=== PATIENT | female | born 1955 | race Hispanic/Latino ===

== ENCOUNTER 2020-08-28 13:54 | Observation (INO) | payer OTHER ==
[~2020-08-28 13:54] MED LIST: Iopamidol-370 76% 500 ML 1 ML ONE
[2020-08-28] MEDS ORDERED: Aspirin Chewable 81 MG TAB ONE (14:24)
[2020-08-28] MEDS ORDERED: Nitroglycerin 2% Ointment 1 INCH/1 GM Packet ONE (14:24)
--- NOTE | 2020-08-28 14:38 | RAD ---
EXAM: CHEST ONE VIEW HISTORY: Chest pain. COMPARISON: None FINDINGS: Cardiac silhouette is magnified by projection but does appear mildly enlarged. The pulmonary vasculat ure is within normal limits. There are minimal scattered linear densities seen in the lungs bilaterally which may be related to mild chronic lung changes. There is minimal pleural thickening ve rsus pleural fluid in the region of the minor fissure. Slight blunting of the left lateral costophrenic angle is present which may represent minimal pleural and parenchymal scarring versus min imal pleural fluid. No consolidation is seen within the lungs bilaterally. Vascular calcifications are seen in the thoracic aorta. No acute osseous abnormality is seen. IMPRESSION: 1. Mild chronic lung changes with minimal pleural fluid versus pleural and parenchymal scarring in th e region of the left lateral costophrenic angle and minor fissure. 2. Mild cardiomegaly.
[2020-08-28 15:16] LABS: #Basophils 0.1 thou/uL (0.0-0.2); #Eosinphils 0.1 thou/uL (0.0-0.7); #Lymphocytes 1.7 thou/uL (1.20-3.40); #Monocytes 0.3 thou/uL (0.11-0.59); #Neutrophils 4.4 thou/uL (1.40-6.50); %Basophils 1.2 % (0.0-1.0); %Eosinophils 0.9 % (0.0-10.0); %Lymphocytes 25.4 % (21.0-51.0); %Neutrophils 67.6 % (42.0-75.0); Hemoglobin 13.5 g/dL (12.0-16.0); Mean Corpuscular HGB CONC 33.6 g/dL (32.0-36.0); Mean Corpuscular Hemoglobin 33.8 pg (27.0-31.0); Mean Platelet Volume 9.8 fL (7.4-10.4); Platelet Count 190 thou/uL (130-400); RBC Distribution Width 11.5 % (11.5-14.5); White Blood Cell (WBC) Count 6.6 thou/uL (4.8-10.8)
[2020-08-28 15:41] LABS: ALT (SGPT) 21 U/L (8-55); AST (SGOT) 25 U/L (5-34); Alkaline Phosphatase 54 U/L (40-110); Anion Gap 11 mmol/L (10-20); BUN (Urea Nitrogen) 18 mg/dL (9.8-20.1); Bilirubin, Total 0.6 mg/dL (0.2-1.2); CK (CPK) 81 U/L (29-168); Calc. Creatinine Clearance 0 mL/min (70-130); Calcium 9.2 mg/dL (7.8-10.44); Carbon Dioxide 23 mmol/L (23-31); Chloride 109 mmol/L (98-107); Estimated GFR-MDRD 60; Globulin 3.6 g/dL (2.4-3.5); Glucose 112 mg/dL (80-115); Potassium 3.6 mmol/L (3.5-5.1); Protein, Total 7.6 g/dL (6.0-8.3); Sodium 139 mmol/L (136-145)
[2020-08-28] MEDS ORDERED: Acetaminophen 500 MG TAB ONE (16:08)
[2020-08-28] MEDS ORDERED: Guaifenesin DM 100-10/5 ML UDCUP PO PRN (17:06)
[2020-08-28] MEDS ORDERED: Acetaminophen 325 MG TAB PO PRN (17:06)
[2020-08-28] MEDS ORDERED: Calcium Carbonate 500 MG ChewTAB PO PRN (17:06)
[2020-08-28] MEDS ORDERED: Ondansetron PF 4 MG/2 ML Vial IVP PRN (17:06)
[2020-08-28] MEDS ORDERED: Bisacodyl 10 MG SUPP PR PRN (17:06)
[2020-08-28] MEDS ORDERED: Lorazepam 1 MG TAB PO PRN (17:06)
[2020-08-28] MEDS ORDERED: Senokot S 8.6-50 MG TAB PO PRN (17:06)
[2020-08-28] MEDS ORDERED: Morphine 4 MG/ML VIAL ONE (17:10)
[2020-08-28] MEDS ORDERED: Ondansetron PF 4 MG/2 ML Vial ONE (17:10)
[2020-08-28] MEDS ORDERED: Morphine 2 MG/ML VIAL SLOW IVP PRN (17:16)
[2020-08-28 17:34] LABS: Pregnancy Test - Urine (BHCG) Negative (Negative); Pregu Control Background? CLEAR/WHITE (CLR/WHITE); Pregu Control Bar Appear? YES (CONTROL BAR); Specific Gravity 1.014 (1.002-1.036)
[2020-08-28 17:46] LABS: Amphetamine Not Detected (NotDetected); Barbiturates Screen Not Detected (NotDetected); Benzodiazepine Screen Not Detected (NotDetected); Cocaine Metabolite Screen Detected (NotDetected); Medtox Control Line Valid? VALID (VALID); Medtox Reader # READER 1; Methadone Not Detected (NotDetected); Methamphetamine Detected (NotDetected); Opiate Screen Not Detected (NotDetected); Oxycodone Screen Not Detected (NotDetected); Phencyclidine (PCP) Not Detected (NotDetected); THC/Cannabinoid Screen Not Detected (NotDetected); Tricyclic Screen Not Detected (NotDetected)
[2020-08-28 17:50] LABS: Acetaminophen Less than 6.0 mcg/mL (10.0-30.0); Alcohol Less than 10 mg/dL (Less than 10); Salicylate Less than 8.0 mg/dL (15.0-30.0)
--- NOTE | 2020-08-28 17:54 | HP ---
REASON FOR ADMISSION: Chest pain. HISTORY OF PRESENTING ILLNESS: The patient gives history of having left-sided chest pain radiating to the back and this was beneath her breast. This was pricking sensation. This was always present. She tried taking sublingual nitroglycerin. The pain did not go away with nitroglycerin. She tried 2 more times this morning. The patient says she does not have car insurance and no emt driver's license, and was driving and was arrested by police. She was taken into custody. The patient initially denied using cocaine or meth, but she later admitted to using it for 10 years or so in and has quit since then. She sees a primary care physician in [facility]. She does not recall his name; the last time she visited him was 3 months back. The patient also mentions that she has had angiogram done in 2006 in [place], [place] and was advised to get CABG and was transferred to [facility], but the patient got scared to get the surgery done, and since then has not had any followups for that. PAST MEDICAL AND SURGICAL HISTORY: History of 2 prior WA in 1981 and 1989. She was advised CABG in 2006, but the patient was scared and has not had it done. Has not had any further followups. Hypertension, schizophrenia, bipolar disorder, cholecystectomy, prior history of small bowel obstruction, chronic hep C for more than 30 years now. CURRENT MEDICATIONS: Please note the patient does not recall any of her medication nor does she know the name of her pharmacy. She apparently picks them up in [place]. She knows she takes aspirin and an unknown blood thinner amitriptyline, but does not recall any other medications at present. ALLERGIES: NO KNOWN DRUG ALLERGIES. PERSONAL HISTORY: Has used cocaine in the past in the for 10 years or so and has quit. She admits to using marijuana in the past and quit in 1981. Denies drinking alcohol or smoking. She has 7 children and is not in touch with any of them. She is . She is on disability due to mental illness. FAMILY HISTORY: Both parents had cardiac history. Father at the age of 54. Mother at the age of 48. She is the only child. CODE STATUS: The patient does not want to be resuscitated. She has not designated anybody as POA. She was currently living with a friend of hers before being taken into custody. REVIEW OF SYSTEMS: CONSTITUTIONAL: Negative for weight loss or gain, ability to conduct usual activities. SKIN: Negative for rash, itching. EYES: Negative for double vision, pain. ENT/MOUTH: Negative for nose bleeding, neck stiffness, pain, tenderness. CARDIOVASCULAR: Negative for palpitations, dyspnea on exertion, orthopnea. RESPIRATORY: Negative for shortness of breath, wheezing, cough, hemoptysis, fever or night sweats. GASTROINTESTINAL: Negative for poor appetite, abdominal pain, heartburn, nausea, vomiting, constipation, or diarrhea. GENITOURINARY: Negative for urgency, frequency, dysuria, nocturia. MUSCULOSKELETAL: Negative for pain, swelling. NEUROLOGIC/PSYCHIATRIC: Negative for anxiety, depression. ALLERGY/IMMUNOLOGIC: Negative for skin rash, bleeding tendency. PHYSICAL EXAMINATION: GENERAL: The patient is a 65-year-old female who is currently not in any acute distress. VITAL SIGNS: Blood pressure 198/126 on arrival, pulse 90 per minute, respiratory rate 18 per minute. The patient has not had a temperature checked and will obtain the same. Saturating 98% on room air. NECK: Supple. No elevated JVD. HEENT: Eyes; extraocular muscles intact. Pupils reacting to light. Oral cavity; mucous membranes are moist. No exudates or congestion. CARDIOVASCULAR SYSTEM: S1 and S2 heard. Regular rhythm. RESPIRATORY SYSTEM: Air entry 1+ bilateral. Scattered rhonchi. No rales or wheezes. ABDOMEN: Soft. Bowel sounds heard. No tenderness, rigidity, or guarding. EXTREMITIES: No peripheral edema or calf tenderness. VASCULAR SYSTEM: Peripheral pulses 1+ bilateral. No ischemic ulcerations or gangrene. CENTRAL NERVOUS SYSTEM: No gross focal motor deficits noted. The patient is alert, awake, and responds to verbal questions. PSYCHIATRIC: Cannot be accurately assessed. There are no obvious hallucinations or delusions at present. LABORATORY DATA: Chest x-ray done shows chronic lung changes with scarring in the region of left lateral costophrenic angle, minor fissure, and mild cardiomegaly. EKG done shows normal sinus rhythm at 81 beats per minute. There is LBBB seen. QRS duration is 124 milliseconds. There is LVH strain pattern seen. Troponin I 0.03. CK-MB is 4.0. Albumin 4.0. BUN 18, creatinine 0.9, glucose 112. Liver enzymes within normal limits. Electrolytes stable. White count of 6, H and H 13 and 40, platelet count is 190, MCV is 101 with 67% neutrophils. CLINICAL IMPRESSION AND PLAN: The patient will be under observation on telemetry. We will obtain a urine drug screen as well. A CT aortic dissection protocol has been ordered in the ER and we will follow up on the results. We will follow ACS evidence based protocol. We will have 2 more sets of troponin and trend it and a nuclear stress test in the morning. She has underlying LBBB. The patient apparently was told that she will need CABG in 2006 in [facility]. She has uncontrolled hypertension and we will await drug screen results. We will hold off on beta-blockers for now until drug screen results are back. She will be on aspirin, lisinopril 10 mg twice daily, nitroglycerin topical q.8 hourly, and hydralazine 25 mg 3 times daily for now. The patient wants her amitriptyline and she thinks it is 50 mg and we will give it at bedtime. We will closely monitor her on telemetry. Job ID: [id number]
--- NOTE | 2020-08-28 17:55 | CT ---
CTA OF THE CHEST AND ABDOMEN UTILIZING AN AORTIC DISSECTION PROTOCOL AND 3-D REFORMATTED IMAGING INDICATION: Sharp chest pain and hypertension COMPARISON: None FINDINGS: Aorta: No acute aortic stenosis, occlusion or aneurysmal formation demonstrated. There is some appare nt arterial anatomy in the upper abdomen. 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 There is some eccentric ather osclerotic plaque near its origin and that induces mild narrowing of the artery. There is mild narrowing of the KELSEY origin. The SMA, celiac and primary renal arteries bilaterally appear patent. Central pulmonary artery: Not well opacified. No definite central pulmonary embolus is evident. Additional thorax findings: There are coronary artery and thoracic aortic calcifications. There is molina bsegmental volume loss within both lower lobes. No confluent airspace opacity or pneumothorax is demonstrated. There is a tiny left pleural effusion which is nonspecific. Additional abdominal findings: The gallbladder is not identified and presumed to be surgically absent . There is mild intrahepatic and extra hepatic biliary ductal dilatation which is likely related to postcholecystectomy state. There is a horseshoe kidney. There is a small cyst involving the superior pole of the left moiety. The pancreas, adrenal glands and spleen appear within normal limits. No free fluid or enlarged lymph nodes are evident. The unopacified large and small bowel reveal no defin ite acute abnormality. Osseous structures: No acute osseous abnormality. There is scattered degenerative and osteoarthritic change present. IMPRESSION: 1. No appreciable aortic stenosis, occlusion or aneurysmal formation demonstrated. 2. Mild narrowing involving the origin of an aberrant artery feeding a right duplicated renal arteria l branch and pancreaticoduodenal arterial branch. 3. Mild narrowing involving the KELSEY origin. 4. Nonspecific small left pleural effusion.
[2020-08-28 18:33] LABS: Troponin I 0.029 ng/mL (< 0.028)
[2020-08-28 19:31] VITALS: BMI 19.9
[2020-08-28] MEDS ORDERED: Amitriptyline HCl 25 MG TAB PO SCH (21:00)
[2020-08-28] MEDS: Lisinopril 10 MG TAB PO SCH (21:12)
[2020-08-28] MEDS: hydrALAZINE 25 MG TAB PO SCH (21:12)
[2020-08-28] MEDS: Famotidine 20 MG TAB PO SCH (21:12)
[2020-08-28] MEDS: Nitroglycerin 2% Ointment 1 INCH/1 GM Packet TOP SCH (21:13)
[2020-08-28 22:07] LABS: Troponin I 0.035 ng/mL (< 0.028)
[2020-08-29] MEDS: Nitroglycerin 2% Ointment 1 INCH/1 GM Packet TOP SCH (04:39)
[2020-08-29 06:47] LABS: #Eosinphils 0.1 thou/uL (0.0-0.7); #Lymphocytes 0.9 thou/uL (1.20-3.40); #Monocytes 0.2 thou/uL (0.11-0.59); #Neutrophils 1.8 thou/uL (1.40-6.50); %Basophils 1.4 % (0.0-1.0); %Eosinophils 4.7 % (0.0-10.0); %Lymphocytes 29.8 % (21.0-51.0); %Monocytes 6.6 % (0.0-10.0); %Neutrophils 57.6 % (42.0-75.0); Hemoglobin 12.2 g/dL (12.0-16.0); Mean Corpuscular HGB CONC 33.6 g/dL (32.0-36.0); Mean Corpuscular Hemoglobin 34.1 pg (27.0-31.0); Mean Platelet Volume 9.5 fL (7.4-10.4); Platelet Count 169 thou/uL (130-400); RBC Distribution Width 11.5 % (11.5-14.5); Red Blood Cell (RBC) Count 3.58 mill/uL (4.20-5.40); White Blood Cell (WBC) Count 3.1 thou/uL (4.8-10.8)
[2020-08-29 07:16] LABS: Anion Gap 9 mmol/L (10-20); BUN (Urea Nitrogen) 21 mg/dL (9.8-20.1); Calc. Creatinine Clearance 40 mL/min (70-130); Calcium 8.5 mg/dL (7.8-10.44); Carbon Dioxide 24 mmol/L (23-31); Cardiac Risk 2.3 (Less than 4.5); Chloride 106 mmol/L (98-107); Cholesterol 161 mg/dl (< 200 Desired); Estimated GFR-MDRD 61; Glucose 88 mg/dL (80-115); HDL Cholesterol 71 mg/dL (>60 Neg Risk); LDL Cholesterol, Calculated 75 mg/dL; Potassium 3.4 mmol/L (3.5-5.1); Sodium 136 mmol/L (136-145); Triglycerides 76 mg/dL (Less than 150)
[2020-08-29 08:00] VITALS: BP 134/79; TEMP 98.5
[2020-08-29] MEDS: hydrALAZINE 25 MG TAB PO SCH (08:01)
[2020-08-29] MEDS: Famotidine 20 MG TAB PO SCH (08:01)
[2020-08-29] MEDS ORDERED: Aspirin 325 mg Enteric Coated Tablet PO SCH (09:00)
[2020-08-29] MEDS ORDERED: Enoxaparin Sodium 30 MG/0.3 ML SYRINGE SC SCH (09:00)
[2020-08-29] MEDS: Lisinopril 10 MG TAB PO SCH (10:13)
[2020-08-29 11:42] LABS: SARS-CoV-2 MS2 Positive; SARS-CoV-2 N Gene Negative; SARS-CoV-2 S Gene Negative; SARS-CoV-2 by NAA Not Detected (NotDetected); SARS-CoV-2 orf1ab Negative
--- NOTE | 2020-08-29 17:08 | DIS ---
DATE OF ADMISSION: 08/28/2020 DATE OF DISCHARGE: 08/29/2020 DISCHARGE DISPOSITION: [facility]. PRIMARY DISCHARGE DIAGNOSIS: Chest pain secondary to cocaine and methamphetamine use, substance abuse. SECONDARY DISCHARGE DIAGNOSES: History of coronary artery disease in the past, hypertension, schizoaffective disorder, bipolar disorder. PROCEDURES DONE DURING HOSPITALIZATION: Chest x-ray done showed mild cardiomegaly with chronic pulmonary changes. CT aortic dissection protocol done showed no aortic stenosis, occlusion, or aneurysm formation seen. Mild narrowing involving the origin of aberrant artery feeding a right duplicated renal arterial branch and pancreaticoduodenal arterial branch. Mild narrowing involving KELSEY origin. Urine drug screen was positive for methamphetamine and cocaine metabolites, plasma alcohol less than 10. COVID-19 PCR was not detected on 08/28/2020. Troponin I was 0.039. BNP 1432, total cholesterol 161, triglycerides 76, LDL 75, HDL 71, H and H 12 and 36 platelet count 169, MCV is 102. DISCHARGE MEDICATION: 1. Amitriptyline 50 mg p.o. at bedtime. 2. Hydralazine 25 mg 3 times daily. 3. Aspirin 81 mg p.o. daily. 4. Lisinopril 10 mg twice daily. 5. Pepcid 20 mg twice daily. ALLERGIES: NO KNOWN DRUG ALLERGIES. PLEASE NOTE, NO BETA PALMA WAS GIVEN IN VIEW OF THE PATIENT'S URINE DRUG SCREEN BEING POSITIVE FOR COCAINE AND METHAMPHETAMINE. DISCHARGE PLAN: The patient to follow up with her primary care physician in [place] in 1 week. BRIEF COURSE DURING HOSPITALIZATION: The patient initially was brought to emergency room with complaints of left-sided chest pain beneath her breast. She was brought from [facility]. The patient although denied she used drugs, but in fact was arrested by police for possession of drugs. Her urine drug screen was also positive for cocaine and methamphetamine. She was placed on telemetry and has had close monitoring done. Her hypertension was well controlled on current medication. She was not taking any medications. The patient is noncompliant with her schizoaffective disorder medication as well. She has not had any regular followups with her primary care physician in [place]. Once the patient remains off street drugs, she will need a complete cardiology evaluation including echo and likely a nuclear stress test via primary care physician. In view of drug screen being positive for vasoconstricting agents, stress test was not done. She is chest pain free and hemodynamically stable prior to discharge. Please note I have seen and examined the patient on the day of discharge. Job ID: [id number]
== END 2020-08-29 15:00 ==
LOC: EDBD 13:54 → EEVIPCON 13:54 → ERS 13:54 → 2SW 16:47
PROVIDERS: ADMIT Internal Medicine; ATTEND Internal Medicine
DX: F14.188 Cocaine abuse with other cocaine-induced disorder (principal); F15.188 Other stimulant abuse with other stimulant-induced disorder; R07.89 Other chest pain; I25.10 Atherosclerotic heart disease of native coronary artery without angina pectoris; I10 Essential (primary) hypertension; F25.9 Schizoaffective disorder, unspecified; F31.9 Bipolar disorder, unspecified; F41.9 Anxiety disorder, unspecified; I25.2 Old myocardial infarction; B18.2 Chronic viral hepatitis C; I44.7 Left bundle-branch block, unspecified; J90 Pleural effusion, not elsewhere classified; Z66 Do not resuscitate; Z91.14 Patient's other noncompliance with medication regimen; Z79.82 Long term (current) use of aspirin; Z79.899 Other long term (current) drug therapy; Z20.828 Contact with and (suspected) exposure to other viral communicable diseases; Z95.1 Presence of aortocoronary bypass graft
CPT/HCPCS: 36415; 71045; 71275; 74174; 80048; 80053; 80061; 80306; 80307; 81025; 82550; 82553; 83880; 84484; 85025; 87635; 93005; 94760; 96372; 96374; 96375; 96376; G0378; J1650; J2270; J2405; Q9967; U0003

== ENCOUNTER 2020-12-08 06:42 | Inpatient (IN) | payer MEDICARE, SELFPAY ==
[2020-12-08] MEDS ORDERED: Aspirin Chewable 81 MG TAB ONE (07:47)
[2020-12-08] MEDS ORDERED: Nitroglycerin 0.4 MG TAB 1 EACH ONE (07:47)
[2020-12-08 07:54] LABS: #Basophils 0.1 thou/uL (0.0-0.2); #Eosinphils 0.1 thou/uL (0.0-0.7); #Lymphocytes 2.1 thou/uL (1.20-3.40); #Monocytes 0.3 thou/uL (0.11-0.59); #Neutrophils 2.2 thou/uL (1.40-6.50); %Eosinophils 2.3 % (0.0-10.0); %Lymphocytes 43.3 % (21.0-51.0); %Monocytes 5.6 % (0.0-10.0); %Neutrophils 46.9 % (42.0-75.0); Hemoglobin 13.1 g/dL (12.0-16.0); Mean Corpuscular HGB CONC 31.7 g/dL (32.0-36.0); Mean Corpuscular Hemoglobin 32.2 pg (27.0-31.0); Mean Platelet Volume 8.9 fL (7.4-10.4); Platelet Count 199 thou/uL (130-400); RBC Distribution Width 13.1 % (11.5-14.5); Red Blood Cell (RBC) Count 4.05 mill/uL (4.20-5.40); White Blood Cell (WBC) Count 4.8 thou/uL (4.8-10.8)
--- NOTE | 2020-12-08 08:18 | RAD ---
Chest AP view INDICATION: Chest pain COMPARISON: Prior exam dated September 13, 2020 FINDINGS: Lungs: There is subsegmental volume loss versus scarring involving the right midlung. There is COPD change. Cardiac silhouette: There is moderate cardiomegaly Pulmonary vasculature: There is mild pulmonary vascular congestion. Pleural spaces: There are small bilateral pleural effusions, right greater than left. No pneumothora x is evident. Upper abdomen: No abnormality seen. Osseous structures: No acute osseous abnormality. Additional findings: None. IMPRESSION: Findings suspicious for mild CHF
[2020-12-08 08:22] LABS: ALT (SGPT) 22 U/L (8-55); AST (SGOT) 33 U/L (5-34); Albumin 3.9 g/dL (3.4-4.8); Alkaline Phosphatase 60 U/L (40-110); Anion Gap 19 mmol/L (10-20); BUN (Urea Nitrogen) 45 mg/dL (9.8-20.1); Bilirubin, Total 0.5 mg/dL (0.2-1.2); CK (CPK) 109 U/L (29-168); Calc. Creatinine Clearance 0 mL/min (70-130); Calcium 9.1 mg/dL (7.8-10.44); Carbon Dioxide 25 mmol/L (23-31); Chloride 101 mmol/L (98-107); Globulin 4.1 g/dL (2.4-3.5); Glucose 130 mg/dL (80-115); Lipase 22 U/L (8-78); Potassium 3.8 mmol/L (3.5-5.1); Sodium 141 mmol/L (136-145)
[2020-12-08 08:31] LABS: CKMB 4.4 ng/mL (0-6.6)
[2020-12-08 08:35] LABS: Bacteria/HPF None Seen HPF (None Seen); Bilirubin Negative (Negative); Blood, Urine Negative (Negative); Clarity Clear (Clear); Glucose, Urine (Dipstick) Normal (Negative); Ketone, Urine Negative (Negative); Leukocyte Negative Leu/uL (Negative); Nitrite Negative (Negative); Protein, Urine (Dipstick) 200 mg/dL (Neg-Trace); RBC/HPF 0-3 HPF (0-3); Specific Gravity, Urine 1.031 (1.002-1.036); Squamous Epithelial None Seen HPF (0-3); Urobilinogen 3 mg/dL (Less than 2); WBC/HPF 0-3 HPF (0-3)
[2020-12-08] MEDS ORDERED: Furosemide 20 MG/2 ML VIAL ONE (08:49)
[2020-12-08] MEDS ORDERED: Ondansetron PF 4 MG/2 ML Vial ONE (08:49)
[2020-12-08] MEDS ORDERED: Morphine 4 MG/ML VIAL ONE (08:49)
[2020-12-08] MEDS ORDERED: Nitroglycerin 2% Ointment 1 INCH/1 GM Packet TOP PRN (10:35)
[2020-12-08 10:36] LABS: SARS-CoV-2 NAA Rapid Test Not Detected (NotDetected)
--- NOTE | 2020-12-08 10:43 | PDOC.HHP ---
Hospitalist HPI Shortness of breath History of Present Illness: Ms. Horner is a 65-year-old female with a past medical history of coronary artery disease, hypertension, anxiety, bipolar disorder, schizophrenia, hepatitis C, remote IV drug use, hyperlipidemia who presents with worsening dyspnea on exertion. Patient reports that over the past few days she has had worsening shortness of breath when ambulating. Patient finds it she needs to sit up at night due to her breathing. She is also noticed some increased swelling in her lower extremities. Patient reports that she does take several medications but is unaware of the name. She does take a water pill which she reports she took some extra doses of yesterday. She does not have a elevator starter or primary care provider. She does report that she was told a few years ago that she needed open heart surgery, however she never followed up because she was "too scared about having an operation". She denies cough, upper respiratory symptoms. No known Covid contacts. In emergency room initial vital signs 173/129, 99, 20, 97.4, 94% on room air. EKG showed normal sinus rhythm with a left bundle branch block. Recent ER admission approximately 1 month ago sewed stable left bundle branch block. No ST segment changes. Initial troponin 0 0.103, BNP 3952, WBC 4.8, H/H 13.1/41.2, platelets 199. BUN/CR 45/1.76, sodium 141, potassium 3.8, glucose 130. Patient received aspirin, Lasix, morphine, Zofran, Nitropaste in the emergency room. Allergies/Adverse Reactions: Allergy/AdvReac Type Severity Reaction Status Date / Time No Known Allergies Allergy Verified 08/28/20 20:05 Home Medications: Medication Instructions Recorded Confirmed Type "Blood Thinner" 1 tab PO DAILY 08/28/20 08/28/20 History Amitriptyline HCl [Elavil] 50 mg PO HS 08/28/20 08/28/20 History Bipolar Med 1 tab PO DAILY 08/28/20 08/28/20 History Bipolar Medication 1 tab PO HS 08/28/20 08/28/20 History Aspirin Chewable [Aspirin Chewable 81 mg PO DAILY #30 tab 08/29/20 Rx Tablet] Famotidine [Pepcid] 20 mg PO BID #60 tab 08/29/20 Rx Lisinopril [Zestril] 10 mg PO BID #60 tab 08/29/20 Rx hydrALAZINE [Apresoline] 25 mg PO TID #90 tab 08/29/20 Rx Past History: PMHx: PSHx: FHx: Social: Hospitalist HPI ROS Constitutional: denies: fever, chills, sweats, weakness, malaise, other Eyes: denies: pain, vision change, conjunctivae inflammation, eyelid inflammation, redness, other ENT: denies: ear pain, ear discharge, nose pain, nose discharge, nose congestion, mouth pain, mouth swelling, throat pain, throat swelling, other Respiratory: reports: shortness of breath, SOB with excertion. denies: cough, dry, hemoptysis, pleuritic pain, sputum, wheezing, other Cardiovascular: reports: chest pain, orthopnea, paroxysmal noc. dyspnea. denies: palpitations, edema, light headedness, other Gastrointestinal: denies: nausea, vomiting, abdominal pain, diarrhea, constipation, melena, hematochezia, other Genitourinary: denies: dysuria, frequency, incontinence, hematuria, retention, other Musculoskeletal: denies: neck pain, shoulder pain, arm pain, back pain, hand pain, leg pain, foot pain, other Skin: denies: rash, lesions, carlyle, bruising, other Neurological: denies: weakness, numbness, incoordination, change in speech, confusion, seizures, other Hospitalist Exam General Appearance: NAD, awake alert General - other findings: Disheveled in appearance Eye: PERRL, anicteric sclera ENT: normocephalic atraumatic, no oropharyngeal lesions, moist mucosa Neck: supple, symmetric, no thyromegaly, no lymphadenopathy, no carotid bruit, JVD Neck - other findings: JVD with positive hepatojugular reflux Heart: RRR, no rubs, normal peripheral pulses Heart - other findings: S3 gallop Respiratory: no ronchi, normal chest expansion, no tachypnea Respiratory - other findings: Crackles at bilateral bases Gastrointestinal: soft, non-tender, non-distended, normal bowel sounds, no palpable masses, no hepatomegaly, no splenomegaly, no bruit Extremities: no cyanosis, no clubbing, 1+ LE edema Skin: normal turgor, no lesions, no rashes Neurological: cranial nerve grossly intact, normal sensation to touch, no weakness, no focal deficits, no new deficit Musculoskeletal: normal tone, normal strength, no muscle wasting Psychiatric: normal affect, normal behavior, A&O x 3 Hospitalist Results Result Diagrams: 12/08/20 07:38 12/08/20 07:38 Lab results: Laboratory Last Values WBC 4.8 thou/uL (4.8-10.8) 12/08/20 07:38 RBC 4.05 mill/uL (4.20-5.40) L 12/08/20 07:38 Hgb 13.1 g/dL (12.0-16.0) 12/08/20 07:38 Hct 41.2 % (36.0-47.0) 12/08/20 07:38 MCV 102.0 fL (78.0-98.0) H 12/08/20 07:38 MCH 32.2 pg (27.0-31.0) H 12/08/20 07:38 MCHC 31.7 g/dL (32.0-36.0) L 12/08/20 07:38 RDW 13.1 % (11.5-14.5) 12/08/20 07:38 Plt Count 199 thou/uL (130-400) 12/08/20 07:38 MPV 8.9 fL (7.4-10.4) 12/08/20 07:38 Neutrophils % 46.9 % (42.0-75.0) 12/08/20 07:38 Neutrophils % (Manual) Not Reportable 12/08/20 07:38 Lymphocytes % 43.3 % (21.0-51.0) 12/08/20 07:38 Monocytes % 5.6 % (0.0-10.0) 12/08/20 07:38 Eosinophils % 2.3 % (0.0-10.0) 12/08/20 07:38 Basophils % 2.0 % (0.0-1.0) H 12/08/20 07:38 Neutrophils # 2.2 thou/uL (1.40-6.50) 12/08/20 07:38 Lymphocytes # 2.1 thou/uL (1.20-3.40) 12/08/20 07:38 Monocytes # 0.3 thou/uL (0.11-0.59) 12/08/20 07:38 Eosinophils # 0.1 thou/uL (0.0-0.7) 12/08/20 07:38 Basophils # 0.1 thou/uL (0.0-0.2) 12/08/20 07:38 Sodium 141 mmol/L (136-145) 12/08/20 07:38 Potassium 3.8 mmol/L (3.5-5.1) 12/08/20 07:38 Chloride 101 mmol/L (98-107) 12/08/20 07:38 Carbon Dioxide 25 mmol/L (23-31) 12/08/20 07:38 Anion Gap 19 mmol/L (10-20) 12/08/20 07:38 BUN 45 mg/dL (9.8-20.1) H 12/08/20 07:38 Creatinine 1.76 mg/dL (0.6-1.1) H 12/08/20 07:38 Estimated GFR (MDRD) 12/08/20 07:38 Glucose 130 mg/dL (80-115) H 12/08/20 07:38 Calcium 9.1 mg/dL (7.8-10.44) 12/08/20 07:38 Total Bilirubin 0.5 mg/dL (0.2-1.2) 12/08/20 07:38 AST 33 U/L (5-34) 12/08/20 07:38 ALT 22 U/L (8-55) 12/08/20 07:38 Alkaline Phosphatase 60 U/L (40-110) 12/08/20 07:38 Creatine Kinase 109 U/L (29-168) 12/08/20 07:38 CK-MB (CK-2) 4.4 ng/mL (0-6.6) 12/08/20 07:38 Troponin I 0.103 ng/mL (< 0.028) H 12/08/20 07:38 B-Natriuretic Peptide 3952.7 pg/mL (0-100) H 12/08/20 07:38 Serum Total Protein 8.0 g/dL (5.8-8.1) 12/08/20 07:38 Albumin 3.9 g/dL (3.4-4.8) 12/08/20 07:38 Globulin 4.1 g/dL (2.4-3.5) H 12/08/20 07:38 Albumin/Globulin Ratio 1.0 g/dL (1.2-2.2) L 12/08/20 07:38 Lipase 22 U/L (8-78) 12/08/20 07:38 Urine Color Yellow (Yellow) 12/08/20 07:56 Urine Clarity Clear (Clear) 12/08/20 07:56 Urine pH 6.0 (5.0-9.0) 12/08/20 07:56 Ur Specific [place] 1.031 (1.002-1.036) 12/08/20 07:56 Urine Protein 200 mg/dL (Neg-Trace) A 12/08/20 07:56 Urine Glucose (UA) Normal mg/dL (Negative) 12/08/20 07:56 Urine Ketones Negative mg/dL (Negative) 12/08/20 07:56 Urine Blood Negative (Negative) 12/08/20 07:56 Urine Nitrite Negative (Negative) 12/08/20 07:56 Urine Bilirubin Negative (Negative) 12/08/20 07:56 Urine Urobilinogen 3 mg/dL (Less than 2) A 12/08/20 07:56 Ur Leukocyte Esterase Negative Elizabeth/uL (Negative) 12/08/20 07:56 Urine RBC 0-3 HPF (0-3) 12/08/20 07:56 Urine WBC 0-3 HPF (0-3) 12/08/20 07:56 Ur Squamous Epith Cells None Seen HPF (0-3) 12/08/20 07:56 Urine Bacteria None Seen HPF (None Seen) 12/08/20 07:56 Hyaline Casts 4-6 LPF (0-3) A 12/08/20 07:56 Influenza A RNA INAAT Not Detected (NotDetected) 12/08/20 07:38 Influenza B RNA INAAT Not Detected (NotDetected) 12/08/20 07:38 SARS-CoV-2 Rap RNA(RT-PCR) Not Detected (NotDetected) 12/08/20 07:38 Hospitalist H&P A/P Plan: 65-year-old female with past medical history of hypertension, coronary artery disease, hepatitis C, schizophrenia/bipolar disorder presents with worsening dyspnea on exertion and chest pain found to be in acute CHF exacerbation. Acute exacerbation of congestive heart failure Patient reports she does not have a PCP or elevator starter. She has seen a elevator starter years ago who told her she needed open heart surgery, but she never followed up because she was nervous about getting an operation. Patient does report that she takes medication for her blood pressure and a water pill. She is unable to tell me the names of any of the medications. On exam patient with elevated JVD, positive hepatojugular reflex, S3 gallop, 1+ peripheral edema and crackles. BNP significantly elevated 3952, troponin 0 0.103. Chest x-ray with small bilateral pleural effusions and pulmonary vascular congestion. BUNs/CR 45/1.76. WBC 4.8. Patient received 60 mg of IV Lasix in emergency room. She is currently saturating at 94% on room air. Will admit for new onset CHF work- up and consult cardiology for further recommendations. Patient's blood pressure is stable in fact she is hypertensive. Patient is mildly tachycardic as well. Plan IV Lasix 40 mg twice daily, titrate to urine output of 2 to 3 L Supplemental oxygen as needed Start Coreg Cardiology consult NSTEMI Patient with chest pain and elevated troponin to 0.103. Unable to tell if type I versus type II NSTEMI at this time. May be elevated secondary to acute CHF exacerbation also in the setting of an DACIA. Patient however does have a significant coronary artery disease history stating that years ago she was told she needed open heart surgery. EKG shows no ischemic changes but does show a left bundle branch block, which is stable from prior EKG taken in October. On prior admission patient was positive for cocaine and methamphetamine use causing her chest pain at that time. She did not undergo a stress test since she still had these agents in her system. Patient denies current use, but will urine drug screen. Will trend troponin, keep on telemetry monitoring and consult cardiology for further recommendations. Plan Aspirin, Nitropaste as needed Trend troponin Telemetry monitoring Cardiology consult Acute kidney failure Patient with acute kidney failure BUN/CR 45/1.76. Review of records shows baseline creatinine less than 1. Likely component of cardiorenal syndrome. I do not think this is prerenal azotemia at this time as patient appears fluid overloaded on exam. We will continue to diurese patient and monitor kidney function closely. Will avoid nephrotoxic agents were possible. Plan IV diuresis as above Trend kidney function Avoid nephrotoxic agents were possible Renal dosing as appropriate Hypertension Patient hypertensive in emergency room to 173/124. Improved with Nitropaste. Patient on multiple home medications, but she is unsure which ones. Will hold off on starting TERRY inhibitor now given patient's kidney function, although patient will likely need this started prior to discharge. Will start low-dose beta-yamilex and treat with as needed hydralazine for now. Plan Confirm home medications Consider starting TERRY inhibitor prior to discharge Start low-dose Coreg As needed hydralazine Hyperlipidemia We will start patient on atorvastatin. Patient does report she takes medication for cholesterol but cannot remember the name. Coronary artery disease History of coronary artery disease. Patient has not seen a elevator starter in years, but does report that years ago she was told she needed open heart surgery, and was lost to follow-up. Aspirin Treatment as above per NSTEMI Bipolar disorder and schizophrenia History of bipolar disorder and schizophrenia. Patient says she does take psychiatric medications although does not know the names of them. History of cocaine and methamphetamine abuse Patient with history of cocaine and methamphetamine abuse on prior admission. Patient currently denies any current use. As these could be contributing to patient's chest pain will appropriate urine drug screen. DVT prophylaxis SQ heparin Full code Case discussed with attending physician, Dr. Madera.
[2020-12-08 11:10] LABS: Troponin I 0.086 ng/mL (< 0.028)
[2020-12-08] MEDS ORDERED: hydrALAZINE 20 MG/ML VIAL SLOW IVP PRN (11:10)
[2020-12-08 11:25] LABS: HIV (1/2) Antibody/Antigen Non-Reactive (NonReactive); Thyroid Stimulating Hormone 1.7618 uIU/mL (0.35-4.94)
[2020-12-08 12:02] VITALS: BMI 21.4
[2020-12-08] MEDS ORDERED: Magnesium 2 GM/50 ML 2 GM in Premix Bag 1 BAG IVPB SCH (13:15)
[2020-12-08 13:49] LABS: Amphetamine Not Detected (NotDetected); Barbiturates Screen Not Detected (NotDetected); Benzodiazepine Screen Not Detected (NotDetected); Cocaine Metabolite Screen Detected (NotDetected); Medtox Control Line Valid? VALID (VALID); Medtox Reader # READER 1; Methadone Not Detected (NotDetected); Methamphetamine Not Detected (NotDetected); Opiate Screen Detected (NotDetected); Oxycodone Screen Not Detected (NotDetected); Phencyclidine (PCP) Not Detected (NotDetected); THC/Cannabinoid Screen Not Detected (NotDetected); Tricyclic Screen Not Detected (NotDetected)
[2020-12-08 13:58] LABS: Troponin I 0.107 ng/mL (< 0.028)
[2020-12-08] MEDS: Furosemide 40 MG/4 ML VIAL SLOW IVP SCH (13:58)
[2020-12-08] MEDS: Heparin 5,000 UNITS/ML VIAL SC SCH ×2 (14:04→21:13)
--- NOTE | 2020-12-08 16:01 | CON ---
DATE OF CONSULTATION: 12/08/2020 REASON FOR CONSULTATION: Shortness of breath. HISTORY OF PRESENT ILLNESS: Ms. Horner is a 65-year-old female, who comes to the hospital for shortness of breath. She has significant cardiac history, apparently in [place], [place]. In several years ago around 2006, she had a procedure that sounds to be a heart catheterization and she was advised that she needed bypass surgery and she was transferred to the [facility]. She does not really recall this as well as she is unable to give me much detail. This is mostly from a note from August when she was here in the hospital. She was here at that time for chest pain and she was ruled out and sent home. Today, she comes in as she has noticed shortness of breath for the last 3 days. She states it started 3 days ago and it just kept getting worse and worse and worse. Decided to come in as she could not breathe. She has no known COVID contacts and she has never followed as she is very scared about any type of surgeries. On my evaluation, Ms. Horner states that she just wants to feel better and she would like to do whatever we tell her to do as long as she can feel better. When I mentioned the possible procedure like a heart catheterization or even surgery, she immediately tells me that she would probably have to think about it then. On my evaluation, Ms. Horner is not complaining of any chest pain, tightness, or pressure and her shortness of breath is slowly getting better. PAST MEDICAL HISTORY: 1. Coronary artery disease as above. This is unclear. 2. Hypertension. 3. Anxiety. 4. Bipolar disorder. 5. Schizophrenia. 6. Hepatitis C. 7. 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 SURGICAL HISTORY: 1. Cholecystectomy. 2. History of small bowel obstruction. 3. Chronic hep C. OUTPATIENT MEDICATIONS: 1. Aldactone 25 mg a day. 2. Entresto 24/26 b.i.d. 3. Carvedilol 3.125 b.i.d. 4. Furosemide 20 mg a day. 5. Aspirin 81 a day. ALLERGIES: NO KNOWN DRUG ALLERGIES. SOCIAL HISTORY: Former drug user, cocaine, but apparently has not done in several years now. This was in the , used for about 10 years. Denies alcohol or tobacco use. Apparently, she has 7 kids, but is not in touch with any of them. On disability due to mental illness as above. FAMILY HISTORY: Both parents with cardiac history. Father at 54. Mother at 88, unclear as to what history this. REVIEW OF SYSTEMS: A 12-point review of systems was done and was found to be negative other than stated in the history of present illness. PHYSICAL EXAMINATION: VITAL SIGNS: Temperature 97.8, pulse 104, respiratory rate 20, saturating 96% on room air, blood pressure 183/118. GENERAL: Awake, alert, oriented x3. No distress. HEENT: Normocephalic, atraumatic. NECK: Supple. LUNGS: Have mild crackles at bases. CARDIOVASCULAR: S1 and S2. There is a grade 3/6 systolic murmur at the right upper sternal border. ABDOMEN: Soft. Positive bowel sounds. EXTREMITIES: 1+ edema. SKIN: Warm and dry. LABORATORY DATA: Laboratory work was reviewed. White count of 4, hemoglobin of 13, hematocrit of 41, platelet count of 199. Chemistry with a BUN of 45, creatinine 1.76, GFR of 29. Troponin of 0.10, then 0.08, then 0.08 and BNP of 3952. Albumin of 3.9. UA was reviewed. She was positive for both opiates and cocaine. COVID-19 PCR was not detected. Influenza A and B were negative. HIV was negative as well. ASSESSMENT: 1. Acute on chronic systolic versus diastolic heart failure. 2. Apparent history of coronary artery disease. 3. Substance abuse, positive cocaine and urine drug screen. PLAN: 1. Echocardiogram to be done to assess LV function and valvular structures. 2. Looking at her medication list, she probably has a reduced EF and has been followed by somebody. She states she picks her medications and also she really cannot tell much of her medical history, but this medical regimen has most likely been prescribed by Cardiology somewhere in the past and she apparently is getting medications in [place] somewhere. 3. Would continue her home regimen. 4. Counseling on cessation of substance use. 5. As stated above, she is still skeptical about undergoing any type of surgeries or procedures, so we will diurese her over the weekend and make more decisions in the next few days. Thank you for letting us to participate in the care of your patient. We will follow. Job ID: [id number]
[2020-12-08] MEDS: Carvedilol 3.125 MG TAB PO SCH (21:14)
[2020-12-09] MEDS: Acetaminophen 325 MG TAB PO PRN ×2 (00:36→14:31)
[2020-12-09] MEDS ORDERED: HYDROcodone/Acetaminophen 5/325 mg Tablet PO SCH (02:00)
[2020-12-09 04:51] LABS: ALT (SGPT) 18 U/L (8-55); AST (SGOT) 27 U/L (5-34); Albumin 3.4 g/dL (3.4-4.8); Alkaline Phosphatase 51 U/L (40-110); Anion Gap 16 mmol/L (10-20); BUN (Urea Nitrogen) 48 mg/dL (9.8-20.1); Bilirubin, Total 0.6 mg/dL (0.2-1.2); Calc. Creatinine Clearance 27 mL/min (70-130); Calcium 8.3 mg/dL (7.8-10.44); Carbon Dioxide 22 mmol/L (23-31); Chloride 102 mmol/L (98-107); Globulin 3.6 g/dL (2.4-3.5); Glucose 119 mg/dL (80-115); Potassium 4.1 mmol/L (3.5-5.1); Sodium 136 mmol/L (136-145)
[2020-12-09] MEDS: Furosemide 40 MG/4 ML VIAL SLOW IVP SCH ×2 (05:58→14:28)
[2020-12-09] MEDS: Aspirin Chewable 81 MG TAB PO SCH (08:34)
[2020-12-09] MEDS: Spironolactone 25 MG TAB PO SCH (08:34)
[2020-12-09] MEDS: Carvedilol 3.125 MG TAB PO SCH ×2 (08:34→17:05)
[2020-12-09] MEDS: Heparin 5,000 UNITS/ML VIAL SC SCH ×3 (08:34→20:23)
[2020-12-09 11:34] LABS: Band 2 % (5-11); Eosinophils 5 % (0-10); Hemoglobin 12.9 g/dL (12.0-16.0); Lymphocytes 35 % (21-51); MDiff Complete? YES; Mean Corpuscular HGB CONC 32.6 g/dL (32.0-36.0); Mean Corpuscular Hemoglobin 33.2 pg (27.0-31.0); Mean Platelet Volume 9.7 fL (7.4-10.4); Monocytes 3 % (0-10); Neutrophil 55 % (42-75); Platelet Count 159 thou/uL (130-400); Platelet Morphology Comment Appears Adequate; RBC Distribution Width 13.3 % (11.5-14.5); Red Blood Cell (RBC) Count 3.87 mill/uL (4.20-5.40); White Blood Cell (WBC) Count 4.1 thou/uL (4.8-10.8)
--- NOTE | 2020-12-09 14:40 | PDOC.HOSPP ---
- Subjective Encounter Date: 12/09/20 Encounter Time: 14:38 Subjective: Ms. Horner was seen today in follow-up of CHF exacerbation. She is complaining of feeling short of breath and having an " anxiety attack." She says she has had these before. Hernurse also mentioned to me she was asking for Vicodin by name. - Objective Vital Signs & Weight: Vital Signs (12 hours) Temp Pulse Resp BP Pulse Ox 12/09/20 11:21 98.2 F 78 18 179/98 H 95 12/09/20 07:30 97.9 F 85 17 154/87 H 94 L 12/09/20 04:00 97.8 F 82 23 H 133/94 H 98 Weight Weight 97 lb 6.4 oz I&O: 12/08/20 12/09/20 12/10/20 06:59 06:59 06:59 Intake Total 504 Output Total 1250 Balance -746 Result Diagrams: 12/09/20 10:42 12/09/20 04:05 Hospitalist ROS - Medication Medications: Active Medications Generic Name Dose Route Start Last Admin Trade Name Freq PRN Reason Stop Dose Admin Acetaminophen 650 mg 12/08/20 14:22 12/09/20 14:31 Acetaminophen 325 Mg Tab PO 650 mg Q6H PRN Administration Fever/Mild Pain Aspirin 81 mg 12/09/20 09:00 12/09/20 08:34 Aspirin Chewable 81 Mg Tab PO 81 mg DAILY RONN Administration Furosemide 40 mg 12/08/20 14:00 12/09/20 14:28 Furosemide 40 Mg/4 Ml Vial SLOW IVP 40 mg 0600,1400 RONN Administration Heparin Sodium (Porcine) 5,000 units 12/08/20 15:00 12/09/20 14:28 Heparin 5,000 Units/Ml Vial SC 5,000 units TID RONN Administration Spironolactone 25 mg 12/09/20 09:00 12/09/20 08:34 Spironolactone 25 Mg Tab PO 25 mg DAILY RONN Administration Hospitalist Exam Vitals: Vital Signs (12 hours) Temp Pulse Resp BP Pulse Ox 12/09/20 11:21 98.2 F 78 18 179/98 H 95 12/09/20 07:30 97.9 F 85 17 154/87 H 94 L 12/09/20 04:00 97.8 F 82 23 H 133/94 H 98 Weight Weight 97 lb 6.4 oz General Appearance: NAD, awake alert Eye: PERRL, anicteric sclera Heart: RRR, no murmur, no gallops, no rubs, normal peripheral pulses Respiratory: no wheezes, no ronchi, rales (at both bases) Gastrointestinal: soft, non-tender, non-distended, normal bowel sounds, no palpable masses, no hepatomegaly Extremities: no cyanosis, no edema Hosp A/P (1) Acute and chronic respiratory failure Code(s): J96.20 - ACUTE AND CHR RESP FAILURE, UNSP W HYPOXIA OR HYPERCAPNIA Status: Acute (2) Acute on chronic systolic heart failure, NYHA class 3 Code(s): I50.23 - ACUTE ON CHRONIC SYSTOLIC (CONGESTIVE) HEART FAILURE Status: Acute (3) Cocaine abuse Code(s): F14.10 - COCAINE ABUSE, UNCOMPLICATED Status: Chronic (4) Hypertension Code(s): I10 - ESSENTIAL (PRIMARY) HYPERTENSION Status: Chronic (5) Acute kidney injury Code(s): N17.9 - ACUTE KIDNEY FAILURE, UNSPECIFIED Status: Acute - Plan * Acute on chronic systolic heart failure- continue to diurese as tolerated * Entresto is on hold due to acute kidney injury * HTN- blood pressure is elevated- will add Hydralazine to gustabo regimen ( will hold on increasing Carvediolol due to the cocaine in her system * Acute Kidney injury- slowly improving * Generalized anxiety- cautious use of Ativan * Await further recommendations from Cardiology
[2020-12-09] MEDS: Lorazepam 2 MG/ML VIAL SLOW IVP PRN ×2 (15:19→21:59)
[2020-12-09] MEDS: hydrALAZINE 25 MG TAB PO SCH ×2 (15:19→20:22)
--- NOTE | 2020-12-09 16:01 | PDOC.CPN ---
- Subjective Date: 12/09/20 Time: 15:59 Interval history: breathing better today. No chest pain. - Review of Systems General: denies: fever/chills, weight/appetite/sleep changes, night sweats, fatigue Respiratory: denies: cough, congestion, shortness of breath, exercise intolerance Cardiovascular: denies: chest pain, palpitation, edema, paroxysmal nocturnal dyspnea, orthopnea Gastrointestinal: denies: nausea, vomiting, diarrhea, constipation, abd pain, GI bleeding Musculoskeletal: denies: pain, tenderness, stiffness, swelling, arthritis/arthralgias Neurological: denies: numbness, syncope, seizure, weakness - Objective Allergies/Adverse Reactions: Allergies Allergy/AdvReac Type Severity Reaction Status Date / Time codeine Allergy Verified 12/09/20 03:38 ketorolac [From Toradol] Allergy Verified 12/09/20 03:38 prochlorperazine Allergy Verified 12/09/20 03:39 [From Compazine] Visit Medications: Current Medications Acetaminophen (Acetaminophen 325 Mg Tab) 650 mg PO Q6H PRN PRN Reason: Fever/Mild Pain Last Admin: 12/09/20 14:31 Dose: 650 mg Documented by: Aspirin (Aspirin Chewable 81 Mg Tab) 81 mg PO DAILY [facility] Last Admin: 12/09/20 08:34 Dose: 81 mg Documented by: Carvedilol (Carvedilol 3.125 Mg Tab) 3.125 mg PO BID-[facility] Furosemide (Furosemide 40 Mg/4 Ml Vial) 40 mg SLOW IVP 0600,1400 [facility] Last Admin: 12/09/20 14:28 Dose: 40 mg Documented by: Heparin Sodium (Porcine) (Heparin 5,000 Units/Ml Vial) 5,000 units SC TID [facility] Last Admin: 12/09/20 14:28 Dose: 5,000 units Documented by: Hydralazine HCl (Hydralazine 20 Mg/Ml Vial) 10 mg SLOW IVP Q4H PRN PRN Reason: SBP GREATER THAN 160 Hydralazine HCl (Hydralazine 25 Mg Tab) 25 mg PO TID [facility] Last Admin: 12/09/20 15:19 Dose: 25 mg Documented by: Lorazepam (Lorazepam 2 Mg/Ml Vial) 0.5 mg SLOW IVP Q6H PRN PRN Reason: Anxiety/Agitation Last Admin: 12/09/20 15:19 Dose: 0.5 mg Documented by: Nitroglycerin (Nitroglycerin 2% Ointment 1 Inch/1 Gm Packet) 0.5 inch TOP Q8H PRN PRN Reason: Chest Pain Spironolactone (Spironolactone 25 Mg Tab) 25 mg PO DAILY RONN Last Admin: 12/09/20 08:34 Dose: 25 mg Documented by: Vital Signs & Weight: Vital Signs Temp Pulse Resp BP Pulse Ox 12/09/20 15:15 97.8 F 88 20 172/109 H 95 12/09/20 11:21 98.2 F 78 18 179/98 H 95 12/09/20 07:30 97.9 F 85 17 154/87 H 94 L 12/09/20 04:00 97.8 F 82 23 H 133/94 H 98 Weight 97 lb 6.4 oz - Physical Exam General: alert & oriented x3 HEENT: mucus membranes moist Neck: supple neck Cardiac: regular rate and rhythm Lungs: clear to auscultation Neuro: grossly intact Abdomen: active bowel sounds Extremities: no edema Skin: clear Musculoskeletal: no pain - Labs Result Diagrams: 12/09/20 10:42 12/09/20 04:05 Troponin/CKMB CK-MB (CK-2) 4.4 ng/mL (0-6.6) 12/08/20 07:38 Troponin I 0.107 ng/mL (< 0.028) H 12/08/20 13:25 - Telemetry Sinus rhythms and dysrhythmias: sinus rhythm - Assessment/Plan Assessment/Plan: 1. Acute on chronic systolic dysfunction. 2. Severe dilated CM EF at 15-20% 3. CAD by history 4. Substance abuse, Positive cocaine 5. Bipolar disorder 6. Schizophrenia 7. Hep C 8. HTN PLAN - Relative contraindication to AICD placement with her schizophrenia. She is not interested in procedures any ways as she is afraid to have anything done. - Continue IV lasix - Will restart Entresto. - Agree with Aldactone. - May be having withdrawal with her elevated BP. - She denies using cocaine but has positive UDS.
[2020-12-09] MEDS ORDERED: Carvedilol 6.25 MG TAB PO SCH (17:00)
[2020-12-09] MEDS ORDERED: Sacubitril 49 MG/Valsartan 51 MG TABLET PO SCH (21:00)
[2020-12-10] MEDS: Furosemide 40 MG/4 ML VIAL SLOW IVP SCH (05:24)
[2020-12-10] MEDS: Lorazepam 2 MG/ML VIAL SLOW IVP PRN (05:24)
[2020-12-10] MEDS: Aspirin Chewable 81 MG TAB PO SCH (08:08)
[2020-12-10] MEDS: Carvedilol 3.125 MG TAB PO SCH (08:08)
[2020-12-10] MEDS: Spironolactone 25 MG TAB PO SCH (08:08)
[2020-12-10] MEDS: Acetaminophen 325 MG TAB PO PRN (08:08)
[2020-12-10] MEDS: hydrALAZINE 25 MG TAB PO SCH (08:08)
[2020-12-10] MEDS: Heparin 5,000 UNITS/ML VIAL SC SCH (08:09)
[2020-12-10 10:17] VITALS: TEMP 98.1
--- NOTE | 2020-12-10 11:16 | PDOC.HOSPP ---
- Subjective Encounter Date: 12/10/20 Encounter Time: 11:13 Subjective: Ms. Horner was seen today in follow-up of CHF exacerbation. She was seen laying flat in bed. Her only complaint is that she wants something to help her sleep. - Objective Vital Signs & Weight: Vital Signs (12 hours) Temp Pulse Resp BP BP Pulse Ox 12/10/20 08:08 83 144/82 H 12/10/20 08:00 98.1 F 85 18 144/82 H 96 12/10/20 05:00 83 146/70 H 12/10/20 03:39 78 171/101 H 12/10/20 03:37 98.2 F 78 18 171/101 H 95 12/10/20 00:11 95 139/90 Weight Weight 101 lb 8 oz I&O: 12/09/20 12/10/20 12/11/20 06:59 06:59 06:59 Intake Total 504 1995 Output Total 1250 1100 Balance -746 895 Result Diagrams: 12/09/20 10:42 12/09/20 04:05 Hospitalist ROS - Medication Medications: Active Medications Generic Name Dose Route Start Last Admin Trade Name Freq PRN Reason Stop Dose Admin Acetaminophen 650 mg 12/08/20 14:22 12/10/20 08:08 Acetaminophen 325 Mg Tab PO 650 mg Q6H PRN Administration Fever/Mild Pain Aspirin 81 mg 12/09/20 09:00 12/10/20 08:08 Aspirin Chewable 81 Mg Tab PO 81 mg DAILY RONN Administration Carvedilol 3.125 mg 12/09/20 17:00 12/10/20 08:08 Carvedilol 3.125 Mg Tab PO 3.125 mg BID-WM RONN Administration Furosemide 40 mg 12/08/20 14:00 12/10/20 05:24 Furosemide 40 Mg/4 Ml Vial SLOW IVP 40 mg 0600,1400 RONN Administration Heparin Sodium (Porcine) 5,000 units 12/08/20 15:00 12/10/20 08:09 Heparin 5,000 Units/Ml Vial SC 5,000 units TID RONN Administration Hydralazine HCl 10 mg 12/08/20 11:10 12/10/20 03:39 Hydralazine 20 Mg/Ml Vial SLOW IVP 10 mg Q4H PRN Administration SBP GREATER THAN 160 Hydralazine HCl 25 mg 12/09/20 15:00 12/10/20 08:08 Hydralazine 25 Mg Tab PO 25 mg TID RONN Administration Lorazepam 0.5 mg 12/09/20 14:37 12/10/20 05:24 Lorazepam 2 Mg/Ml Vial SLOW IVP 0.5 mg Q6H PRN Administration Anxiety/Agitation Sacubitril/Valsartan 1 tab 12/09/20 21:00 12/10/20 08:08 Sacubitril 24mg/Valsartan 26mg Tab PO 1 tab BID RONN Administration Spironolactone 25 mg 12/09/20 09:00 12/10/20 08:08 Spironolactone 25 Mg Tab PO 25 mg DAILY RONN Administration Hospitalist Exam Vitals: Vital Signs (12 hours) Temp Pulse Resp BP BP Pulse Ox 12/10/20 08:08 83 144/82 H 12/10/20 08:00 98.1 F 85 18 144/82 H 96 12/10/20 05:00 83 146/70 H 12/10/20 03:39 78 171/101 H 12/10/20 03:37 98.2 F 78 18 171/101 H 95 12/10/20 00:11 95 139/90 Weight Weight 101 lb 8 oz Eye: PERRL, anicteric sclera Heart: RRR, no murmur, no gallops, no rubs, normal peripheral pulses Respiratory: rales (at the bases, no wheezing or rhonchi) Gastrointestinal: soft, non-tender, non-distended, normal bowel sounds, no palpable masses, no hepatomegaly Extremities: no cyanosis, 1+ LE edema (good distal pulses bilaterally) Hosp A/P (1) Acute and chronic respiratory failure Code(s): J96.20 - ACUTE AND CHR RESP FAILURE, UNSP W HYPOXIA OR HYPERCAPNIA Status: Acute (2) Acute on chronic systolic heart failure, NYHA class 3 Code(s): I50.23 - ACUTE ON CHRONIC SYSTOLIC (CONGESTIVE) HEART FAILURE Status: Acute (3) Cocaine abuse Code(s): F14.10 - COCAINE ABUSE, UNCOMPLICATED Status: Chronic (4) Hypertension Code(s): I10 - ESSENTIAL (PRIMARY) HYPERTENSION Status: Chronic (5) Acute kidney injury Code(s): N17.9 - ACUTE KIDNEY FAILURE, UNSPECIFIED Status: Acute - Plan * Acute on chronic systolic heart failure- She appears to be clinically at her baseline * Entresto has been re-started * HTN- blood pressure is better with the addition of Hydralazine- will continue Carvediolol at the lower dose due to the concurrent cocaine abuse * Acute Kidney injury- stable * Stable for discharge home- with close outpatient follow-up of creatinine and electrolytes
[2020-12-10 12:12] VITALS: BP 135/83
--- NOTE | 2020-12-10 13:21 | PDOC.DS.DS ---
Provider Date of Admission: 12/08/20 09:33 Date of Discharge: 12/10/20 Admitting Provider: Antolin Madera MD Consultations: Cardiology Primary Care Physician: Unknown Course Hospital Course: Ms. Horner is a 65-year-old female that has a history of coronary artery disease hypertension bipolar disorder and schizophrenia. She also has a history of chronic systolic heart failure. She was admitted to the hospital after she began experiencing shortness of breath. She was evaluated in the emergency room and found to be in acute on chronic respiratory failure secondary to congestive heart failure exacerbation. She was admitted and diuresed. She was also noted to have a slightly elevated troponin which is thought to be due to the CHF exacerbation. She was evaluated by our gas usage meter clerk and the patient refused any type of invasive evaluations. She skipped she said she was scared of having any type of cardiac catheterization any type of surgery. Due to her history of schizophrenia drug abuse and noncompliance she was not felt to be a candidate for a defibrillator. And once she was diuresed and stabilized she was able to be discharged home. It is also noted that her urine drug screen was positive for cocaine and for this reason the dose of carvedilol was kept at the lowest dose and hydralazine was added for better blood pressure control. Pertinent Studies: Echocardiogram Resuscitation Status: 12/08/20 10:22 Resuscitation Status Routine Co-Sign Provider: Resuscitation Status: FULL: Full Resuscitation Lab Results: 12/09/20 10:42 12/09/20 04:05 Abnormal Lab Results - Last 48 hrs 12/08/20 13:10: Urine Opiates Screen Detected H, U Cocaine Metab Screen Detected H 12/08/20 13:25: Troponin I 0.107 H 12/09/20 04:05: Carbon Dioxide 22 L, BUN 48 H, Creatinine 1.50 H, Globulin 3.6 H, Albumin/Globulin Ratio 0.9 L 12/09/20 04:05: B-Natriuretic Peptide 3921.8 H 12/09/20 10:42: WBC 4.1 L, RBC 3.87 L, MCV 102.0 H, MCH 33.2 H, Band Neuts % (Manual) 2 L Vitals: Vital Signs (12 hours) Temp Pulse Resp BP BP Pulse Ox 12/10/20 12:00 98.1 F 86 18 135/83 12/10/20 08:08 83 144/82 H 12/10/20 08:00 98.1 F 85 18 144/82 H 96 12/10/20 05:00 83 146/70 H 12/10/20 03:39 78 171/101 H 12/10/20 03:37 98.2 F 78 18 171/101 H 95 Weight Weight 101 lb 8 oz Physical Exam: The patient was seen and examined on the day of discharge. Problem (1) Acute and chronic respiratory failure Code(s): J96.20 - ACUTE AND CHR RESP FAILURE, UNSP W HYPOXIA OR HYPERCAPNIA Status: Acute (2) Acute on chronic systolic heart failure, NYHA class 3 Code(s): I50.23 - ACUTE ON CHRONIC SYSTOLIC (CONGESTIVE) HEART FAILURE Status: Acute (3) Cocaine abuse Code(s): F14.10 - COCAINE ABUSE, UNCOMPLICATED Status: Chronic (4) Hypertension Code(s): I10 - ESSENTIAL (PRIMARY) HYPERTENSION Status: Chronic (5) Acute kidney injury Code(s): N17.9 - ACUTE KIDNEY FAILURE, UNSPECIFIED Status: Acute (6) Schizophrenia Code(s): F20.9 - SCHIZOPHRENIA, UNSPECIFIED Status: Chronic (7) Bipolar disorder Code(s): F31.9 - BIPOLAR DISORDER, UNSPECIFIED Status: Chronic Plan Prescriptions: hydrALAZINE [Apresoline] 25 mg PO TID #90 tab Carvedilol 3.125 mg PO BID #60 tablet Sacubitril/Valsartan [Entresto 24 mg-26 mg Tablet] 1 tab PO BID #60 tab Furosemide 20 mg PO DAILY #30 tablet Home Medications: Medication Instructions Recorded Confirmed Type Aspirin Chewable [Aspirin Chewable 81 mg PO DAILY #30 tab 08/29/20 12/08/20 Rx Tablet] Spironolactone 25 mg PO DAILY 12/08/20 12/08/20 History Carvedilol 3.125 mg PO BID #60 tablet 12/10/20 Rx Furosemide 20 mg PO DAILY #30 tablet 12/10/20 Rx Sacubitril/Valsartan [Entresto 24 1 tab PO BID #60 tab 12/10/20 Rx mg-26 mg Tablet] hydrALAZINE [Apresoline] 25 mg PO TID #90 tab 12/10/20 Rx Allergies: codeine Allergy (Verified 12/09/20 03:38) ketorolac [From Toradol] Allergy (Verified 12/09/20 03:38) prochlorperazine [From Compazine] Allergy (Verified 12/09/20 03:39) itching Discharge Instructions:: Follow-up with your Primary Care Provider in 1-2 week and please have the doctor check a basic metabolic panel or chem 7 at that time Activity:: Activity as Tolerated Nourishment:: Heart Healthy Diet Referrals: Cardiac Rehab - [facility] [Outside] - 7 Days (Your doctor has ordered outpatient cardiac rehab for you to begin within 1-2 weeks after you go home from the hospital. The location nearest to you is the [facility] [place] [facility]. The front office in [place] will call you in 3-5 days to get you scheduled for your evaluation. If you do not receive a call, please reach out to us at [phone] and request an appointment. ) [facility] [Outside[facility] - 7 Days (PLEASE CALL AND ESTABLISH WITH A PRIMARY CARE PHYSICIAN AND ARRANGE A FOLLOW UP APPT TO SEE IN 1 WEEK. ) Disposition: HOME Quality CORE MEASURES:: HF, N/A Did you prescribe antithrombotic therapy?: No Specify reason for no DC antithrombotic therapy: Treatment not indicated Did you prescribe anticoagulant for A Fib/Flutter?: No Specify reason for no DC anticoagulant: Treatment not indicated Did you prescribe a statin medication?: Yes Specify reason for no DC statin medication: Treatment not indicated
--- NOTE | 2020-12-11 23:05 | PQF ---
Dear : Gopi Ann Date 12/12/2020 Please exercise your independent, professional judgment in responding to the clarification form. Clinical indicators are provided on the bottom of this form for your review Can you please further clarify the diagnosis of the patient? Please check appropriate box(es): [ ] Type 1 CA (NSTEMI) [ X ] Type 2 CA (T2MI) secondary to CHF Exacerbation [ ] Other diagnosis please specify [ ] Unable to determine Physician Signature: Date/Time: For continuity of documentation, please document condition throughout progress notes and discharge summary. Thank You. To be completed by CDI/Coding staff for physician review: Present Clinical Indicators - Signs / Symptoms / Labs Results and Location in Medical Record [ x ] Elevated troponin which is thought to be due to the CHF exacerbation DS pg.1 [ x ] EKG showed normal sinus rhythm with a left bundle branch block H and P pg.1 [ x ] NSTEMI H and P pg.5 [ x ] Chest pain and elevated troponin to 0.103 H and P pg.5 [ x ] Troponin: 0.103H, 0.080H, 0.086H, 0.107H Laboratory [ x ] Unable to tell if type 1 versus type 2 NSTEMI H and P pg.5 Present Risk Factors Results and Location in Medical Record [ x ] CAD H and P pg.1 [ x ] HTN H and P pg.1 [ x ] 65 years old H and P pg.1 [ x ] CHF H and P pg.5 Present Treatments Results and Location in Medical Record [ x ] Troponin Monitoring Laboratory [ x ] TTE Echocardiogram [ x ] Cardiology Consult Dr. Landaverde 12/08 [ x ] IV Fluids MAR [ x ] Morphine 4mg IV MAR [ x ] Nitroglycerin 0.5 MAR CDS/Benefits Specialist Recruiter Signature: Rodrigo Sanchez Phone #: ext [phone] Date 12/12/2020 This is a permanent part of the Medical Record [facility]
== END 2020-12-10 12:44 | disposition home or self-care (01) | DRG 280 ==
LOC: ERS 06:42 → 2NO 09:33
PROVIDERS: ADMIT Internal Medicine; ATTEND Internal Medicine
DX: I11.0 Hypertensive heart disease with heart failure (principal); J96.00 Acute respiratory failure, unspecified whether with hypoxia or hypercapnia; I21.A1 Myocardial infarction type 2; N17.9 Acute kidney failure, unspecified; Z20.822 Contact with and (suspected) exposure to COVID-19; I50.23 Acute on chronic systolic (congestive) heart failure; F20.9 Schizophrenia, unspecified; I25.10 Atherosclerotic heart disease of native coronary artery without angina pectoris; F31.9 Bipolar disorder, unspecified; B18.2 Chronic viral hepatitis C; F41.9 Anxiety disorder, unspecified; I44.7 Left bundle-branch block, unspecified; E78.5 Hyperlipidemia, unspecified; I42.0 Dilated cardiomyopathy; Z90.49 Acquired absence of other specified parts of digestive tract; I25.2 Old myocardial infarction; Z79.82 Long term (current) use of aspirin; Z79.899 Other long term (current) drug therapy
CPT/HCPCS: 0240U; 36415; 51701; 71045; 80053; 80306; 81003; 81015; 82550; 82553; 83690; 83735; 83880; 84443; 84484; 85025; 87389; 93005; 93306; 96374; 96375; 97139; J0360; J1644; J1940; J2060; J2270; J2405; J3475

== ENCOUNTER 2021-04-09 07:10 | Emergency (ER) | payer MEDICARE ==
[2021-04-09] MEDS ORDERED: Morphine 4 MG/ML VIAL ONE (07:45)
[2021-04-09] MEDS ORDERED: Furosemide 40 MG/4 ML VIAL ONE (07:46)
[2021-04-09] MEDS ORDERED: Ondansetron PF 4 MG/2 ML Vial ONE (07:46)
[2021-04-09] MEDS ORDERED: Nitroglycerin 2% Ointment 1 INCH/1 GM Packet ONE (07:46)
[2021-04-09 07:47] LABS: Hemoglobin 13.5 g/dL (12.0-16.0); Mean Corpuscular HGB CONC 31.5 g/dL (32.0-36.0); Mean Corpuscular Hemoglobin 33.4 pg (27.0-31.0); Platelet Count 213 thou/uL (130-400); Red Blood Cell (RBC) Count 4.05 mill/uL (4.20-5.40); White Blood Cell (WBC) Count 6.1 thou/uL (4.8-10.8)
[2021-04-09 08:08] LABS: Alcohol Less than 10 mg/dL (Less than 10); Salicylate Less than 8.0 mg/dL (15.0-30.0)
[2021-04-09 08:10] LABS: ALT (SGPT) 22 U/L (8-55); AST (SGOT) 25 U/L (5-34); Albumin 3.9 g/dL (3.4-4.8); Alkaline Phosphatase 65 U/L (40-110); Anion Gap 15 mmol/L (10-20); BUN (Urea Nitrogen) 30 mg/dL (9.8-20.1); Bilirubin, Total 0.3 mg/dL (0.2-1.2); CK (CPK) 72 U/L (29-168); Calc. Creatinine Clearance 0 mL/min (70-130); Calcium 9.2 mg/dL (7.8-10.44); Carbon Dioxide 24 mmol/L (23-31); Chloride 107 mmol/L (98-107); Globulin 3.3 g/dL (2.4-3.5); Glucose 160 mg/dL (80-115); Lipase 45 U/L (8-78); Potassium 4.3 mmol/L (3.5-5.1); Protein, Total 7.2 g/dL (5.8-8.1); Sodium 142 mmol/L (136-145)
[2021-04-09 08:13] LABS: #Basophils 0.1 thou/uL (0.0-0.2); #Eosinphils 0.1 thou/uL (0.0-0.7); #Lymphocytes 2.4 thou/uL (1.20-3.40); #Monocytes 0.4 thou/uL (0.11-0.59); #Neutrophils 3.1 thou/uL (1.40-6.50); %Eosinophils 1.5 % (0.0-10.0); %Lymphocytes 39.2 % (21.0-51.0); %Monocytes 6.4 % (0.0-10.0); MDiff Complete? YES; Macrocytosis SLIGHT = 6-15 cells (100X) (0-5/hpf); Ovalocytes SLIGHT = 2-5 cells (100X) (0-1/hpf); Platelet Morphology Comment Appears Adequate; Polychromasia SLIGHT = 2-3 cells (100X) (0-2/hpf)
[2021-04-09 08:30] LABS: CKMB 4.3 ng/mL (0-6.6)
[2021-04-09] MEDS ORDERED: Iopamidol-370 76% 500 ML 1 ML ONE (08:33)
[2021-04-09 09:48] LABS: Bilirubin Negative (Negative); Blood, Urine Negative (Negative); Clarity Clear (Clear); Glucose, Urine (Dipstick) Normal (Negative); Ketone, Urine Negative (Negative); Leukocyte Negative Leu/uL (Negative); Nitrite Negative (Negative); Protein, Urine (Dipstick) 20 mg/dL (Neg-Trace); Specific Gravity, Urine 1.012 (1.002-1.036); Urobilinogen Normal mg/dL (Less than 2); pH, Urine 5.5 (5.0-9.0)
[2021-04-09 09:53] LABS: Amphetamine Not Detected (NotDetected); Barbiturates Screen Not Detected (NotDetected); Benzodiazepine Screen Not Detected (NotDetected); Cocaine Metabolite Screen Detected (NotDetected); Medtox Control Line Valid? VALID (VALID); Medtox Reader # READER 1; Methadone Not Detected (NotDetected); Methamphetamine Not Detected (NotDetected); Opiate Screen Detected (NotDetected); Oxycodone Screen Not Detected (NotDetected); Phencyclidine (PCP) Not Detected (NotDetected); THC/Cannabinoid Screen Not Detected (NotDetected); Tricyclic Screen Not Detected (NotDetected)
[2021-04-09 10:39] LABS: Troponin I 0.043 ng/mL (< 0.028)
[2021-04-09] MEDS ORDERED: Aspirin Chewable 81 MG TAB ONE (11:13)
== END 2021-04-09 11:56 | disposition home or self-care (01) ==
LOC: ERS 07:10
DX: I11.0 Hypertensive heart disease with heart failure (principal); I50.9 Heart failure, unspecified; F14.10 Cocaine abuse, uncomplicated; Z79.899 Other long term (current) drug therapy
CPT/HCPCS: 36415; 71045; 71275; 80053; 80306; 80307; 81003; 82553; 83690; 83880; 84484; 85025; 85379; 93005; 96374; 96375; J1940; J2270; J2405; Q9967

== ENCOUNTER 2021-04-12 04:05 | Emergency (ER) | payer MEDICARE ==
[2021-04-12 05:34] LABS: ALT (SGPT) 26 U/L (8-55); AST (SGOT) 34 U/L (5-34); Albumin 3.7 g/dL (3.4-4.8); Alkaline Phosphatase 66 U/L (40-110); Anion Gap 18 mmol/L (10-20); BUN (Urea Nitrogen) 32 mg/dL (9.8-20.1); Bilirubin, Total 0.5 mg/dL (0.2-1.2); Calc. Creatinine Clearance 0 mL/min (70-130); Calcium 8.7 mg/dL (7.8-10.44); Carbon Dioxide 19 mmol/L (23-31); Chloride 106 mmol/L (98-107); Globulin 3.7 g/dL (2.4-3.5); Glucose 104 mg/dL (80-115); Potassium 4.1 mmol/L (3.5-5.1); Protein, Total 7.4 g/dL (5.8-8.1); Sodium 139 mmol/L (136-145)
[2021-04-12 05:37] LABS: Eosinophils 2 % (0-10); Hemoglobin 12.5 g/dL (12.0-16.0); Lymphocytes 37 % (21-51); MDiff Complete? YES; Mean Corpuscular HGB CONC 32.2 g/dL (32.0-36.0); Mean Corpuscular Hemoglobin 33.7 pg (27.0-31.0); Mean Platelet Volume 9.7 fL (7.4-10.4); Metamyelocyte 1 % (0-0); Monocytes 19 % (0-10); Neutrophil 40 % (42-75); Platelet Count 116 thou/uL (130-400); Platelet Morphology Comment Appears Decreased; RBC Distribution Width 13.4 % (11.5-14.5); Red Blood Cell (RBC) Count 3.72 mill/uL (4.20-5.40); White Blood Cell (WBC) Count 5.3 thou/uL (4.8-10.8)
[2021-04-12] MEDS ORDERED: Nitroglycerin 0.4 MG TAB 1 EACH ONE (05:42)
[2021-04-12 05:56] LABS: CKMB 4.2 ng/mL (0-6.6)
== END 2021-04-12 06:17 | disposition home or self-care (01) ==
LOC: ERS 04:05
DX: I11.0 Hypertensive heart disease with heart failure (principal); I50.9 Heart failure, unspecified; M54.9 Dorsalgia, unspecified; Z79.899 Other long term (current) drug therapy
CPT/HCPCS: 36415; 71045; 80053; 82553; 83880; 84484; 85025; 93005

== ENCOUNTER 2021-04-27 03:05 | Inpatient (IN) | payer MEDICARE ==
[2021-04-27] MEDS ORDERED: Ondansetron PF 4 MG/2 ML Vial ONE (03:41)
[2021-04-27 04:47] LABS: ALT (SGPT) 32 U/L (8-55); AST (SGOT) 32 U/L (5-34); Albumin 3.9 g/dL (3.4-4.8); Alkaline Phosphatase 66 U/L (40-110); Anion Gap 18 mmol/L (10-20); BUN (Urea Nitrogen) 31 mg/dL (9.8-20.1); Bilirubin, Total 0.9 mg/dL (0.2-1.2); Calc. Creatinine Clearance 0 mL/min (70-130); Calcium 9.5 mg/dL (7.8-10.44); Carbon Dioxide 21 mmol/L (23-31); Chloride 104 mmol/L (98-107); Globulin 4.1 g/dL (2.4-3.5); Glucose 115 mg/dL (80-115); Lipase 11 U/L (8-78); Potassium 4.8 mmol/L (3.5-5.1); Sodium 138 mmol/L (136-145)
[2021-04-27 05:01] LABS: Hemoglobin 14.5 g/dL (12.0-16.0); Mean Corpuscular HGB CONC 33.1 g/dL (32.0-36.0); Mean Corpuscular Hemoglobin 34.9 pg (27.0-31.0); Mean Platelet Volume 9.7 fL (7.4-10.4); Platelet Count 142 thou/uL (130-400); RBC Distribution Width 13.2 % (11.5-14.5); Red Blood Cell (RBC) Count 4.14 mill/uL (4.20-5.40); White Blood Cell (WBC) Count 6.7 thou/uL (4.8-10.8)
[2021-04-27 05:20] LABS: CKMB 2.4 ng/mL (0-6.6)
[2021-04-27 05:22] LABS: Eosinophils 2 % (0-10); Lymphocytes 41 % (21-51); MDiff Complete? YES; Monocytes 3 % (0-10); Neutrophil 54 % (42-75); Platelet Clumps MODERATE; Platelet Morphology Comment Appears Adequate
[2021-04-27] MEDS ORDERED: Aspirin Chewable 81 MG TAB ONE (05:26)
[2021-04-27] MEDS ORDERED: Nitroglycerin 2% Ointment 1 INCH/1 GM Packet ONE (05:26)
[2021-04-27] MEDS ORDERED: Morphine 4 MG/ML VIAL ONE (05:26)
[2021-04-27 07:46] LABS: Troponin I 0.035 ng/mL (< 0.028)
[2021-04-27] MEDS ORDERED: Nitroglycerin 0.4 MG TAB (25 Tab Bottle) SL PRN (07:55)
[2021-04-27] MEDS ORDERED: Enoxaparin Sodium 30 MG/0.3 ML SYRINGE SC SCH (08:00)
[2021-04-27] MEDS: Aspirin Chewable 81 MG TAB PO SCH (08:59)
[2021-04-27] MEDS ORDERED: Clopidogrel Bisulfate 75 MG TAB ONE (09:03)
[2021-04-27] MEDS ORDERED: Enoxaparin Sodium 30 MG/0.3 ML SYRINGE ONE (09:03)
[2021-04-27] MEDS ORDERED: hydrALAZINE 25 MG TAB ONE ×2 (09:03→09:05)
[2021-04-27] MEDS: Clopidogrel Bisulfate 75 MG TAB PO SCH (09:11)
[2021-04-27] MEDS: hydrALAZINE 25 MG TAB PO SCH ×3 (09:11→20:01)
[2021-04-27] MEDS: Furosemide 20 MG TAB PO SCH (10:22)
[2021-04-27] MEDS: Spironolactone 25 MG TAB PO SCH (10:22)
[2021-04-27] MEDS ORDERED: Nitroglycerin 0.4 MG TAB 1 EACH ONE (10:25)
[2021-04-27] MEDS ORDERED: Iopamidol-370 76% 500 ML 1 ML ONE (10:35)
[2021-04-27 10:37] VITALS: BMI 22.8
[2021-04-27 10:50] LABS: Troponin I 0.039 ng/mL (< 0.028)
[2021-04-27] MEDS ORDERED: Acetaminophen 325 MG TAB PO PRN (11:13)
[2021-04-27] MEDS: traMADol HCl 50 MG TAB PO PRN ×2 (12:50→19:59)
[2021-04-27] MEDS: Ondansetron PF 4 MG/2 ML Vial IVP PRN ×2 (12:50→20:00)
[2021-04-27 13:09] LABS: Amphetamine Not Detected (NotDetected); Barbiturates Screen Not Detected (NotDetected); Benzodiazepine Screen Not Detected (NotDetected); Cocaine Metabolite Screen Detected (NotDetected); Medtox Control Line Valid? VALID (VALID); Medtox Reader # READER 1; Methadone Not Detected (NotDetected); Methamphetamine Not Detected (NotDetected); Opiate Screen Detected (NotDetected); Oxycodone Screen Not Detected (NotDetected); Phencyclidine (PCP) Not Detected (NotDetected); THC/Cannabinoid Screen Not Detected (NotDetected); Tricyclic Screen Not Detected (NotDetected)
[2021-04-27 16:59] LABS: SARS-CoV-2 PCR by NAA Not Detected (NotDetected)
[2021-04-27] MEDS ORDERED: Magnesium Citrate 300 ML BOT PO SCH (17:15)
[2021-04-27] MEDS: Bisacodyl 10 MG SUPP PR SCH ×2 (17:54→17:55)
[2021-04-28] MEDS: diphenhydrAMINE 25 MG CAP PO PRN ×3 (00:51→21:06)
[2021-04-28] MEDS: traMADol HCl 50 MG TAB PO PRN ×2 (04:34→10:37)
[2021-04-28] MEDS: Enoxaparin Sodium 30 MG/0.3 ML SYRINGE SC SCH (08:31)
[2021-04-28] MEDS: Aspirin Chewable 81 MG TAB PO SCH (08:32)
[2021-04-28] MEDS: hydrALAZINE 25 MG TAB PO SCH ×3 (08:32→21:00)
[2021-04-28] MEDS: Furosemide 20 MG TAB PO SCH (08:32)
[2021-04-28] MEDS: Spironolactone 25 MG TAB PO SCH (08:32)
[2021-04-28] MEDS: Clopidogrel Bisulfate 75 MG TAB PO SCH (08:32)
[2021-04-28] MEDS: Ondansetron PF 4 MG/2 ML Vial IVP PRN (08:33)
[2021-04-28] MEDS: Fleet Enema 133 ML BOT PR SCH ×2 (10:03→11:51)
[2021-04-28] MEDS: Polyethylene Glycol 3350 17 GM Packet PO SCH (10:17)
[2021-04-28] MEDS ORDERED: Azithromycin 500 MG in Sodium Chloride 0.9% 250 ML 250 ML IVPB SCH (11:00)
[2021-04-28] MEDS ORDERED: Furosemide 20 MG/2 ML VIAL SLOW IVP SCH (11:00)
[2021-04-28] MEDS: cefTRIAXone\\ROCEPHIN 1 GM in Sodium Chloride 0.9% 100 ML IVPB SCH (13:33)
[2021-04-28 16:20] LABS: #Lymphocytes 1.4 thou/uL (1.20-3.40); #Monocytes 0.4 thou/uL (0.11-0.59); #Neutrophils 4.7 thou/uL (1.40-6.50); %Basophils 0.4 % (0.0-1.0); %Eosinophils 0.6 % (0.0-10.0); %Lymphocytes 21.7 % (21.0-51.0); %Monocytes 5.9 % (0.0-10.0); %Neutrophils 71.4 % (42.0-75.0); Hemoglobin 13.9 g/dL (12.0-16.0); Mean Corpuscular HGB CONC 32.8 g/dL (32.0-36.0); Mean Corpuscular Hemoglobin 34.8 pg (27.0-31.0); Mean Platelet Volume 8.1 fL (7.4-10.4); Platelet Count 252 thou/uL (130-400); RBC Distribution Width 13.1 % (11.5-14.5); White Blood Cell (WBC) Count 6.6 thou/uL (4.8-10.8)
[2021-04-28 16:37] LABS: Anion Gap 19 mmol/L (10-20); BUN (Urea Nitrogen) 29 mg/dL (9.8-20.1); Calc. Creatinine Clearance 31 mL/min (70-130); Calcium 8.8 mg/dL (7.8-10.44); Carbon Dioxide 20 mmol/L (23-31); Chloride 104 mmol/L (98-107); Glucose 115 mg/dL (80-115); Magnesium 2.2 mg/dL (1.6-2.6); Potassium 4.5 mmol/L (3.5-5.1); Sodium 138 mmol/L (136-145)
[2021-04-28] MEDS: Atorvastatin Calcium 40 MG TAB PO SCH (21:00)
[2021-04-29] MEDS ORDERED: hydrALAZINE 20 MG/ML VIAL SLOW IVP SCH (04:45)
[2021-04-29 05:54] LABS: Anion Gap 19 mmol/L (10-20); BUN (Urea Nitrogen) 32 mg/dL (9.8-20.1); Calc. Creatinine Clearance 31 mL/min (70-130); Calcium 8.7 mg/dL (7.8-10.44); Carbon Dioxide 18 mmol/L (23-31); Chloride 104 mmol/L (98-107); Glucose 113 mg/dL (80-115); Potassium 4.3 mmol/L (3.5-5.1); Sodium 137 mmol/L (136-145)
[2021-04-29] MEDS: Carvedilol 6.25 MG TAB PO SCH ×2 (08:34→16:55)
[2021-04-29] MEDS: Azithromycin 250 MG TAB PO SCH (08:34)
[2021-04-29] MEDS: Furosemide 20 MG TAB PO SCH (08:35)
[2021-04-29] MEDS: Aspirin Chewable 81 MG TAB PO SCH (08:35)
[2021-04-29] MEDS: Enoxaparin Sodium 30 MG/0.3 ML SYRINGE SC SCH (08:35)
[2021-04-29] MEDS: hydrALAZINE 25 MG TAB PO SCH ×3 (08:35→21:47)
[2021-04-29] MEDS: Clopidogrel Bisulfate 75 MG TAB PO SCH (08:35)
[2021-04-29] MEDS: Spironolactone 25 MG TAB PO SCH (08:35)
[2021-04-29] MEDS: Polyethylene Glycol 3350 17 GM Packet PO SCH (08:36)
[2021-04-29] MEDS ORDERED: Sacubitril 49 MG/Valsartan 51 MG TABLET PO SCH (09:00)
[2021-04-29] MEDS: Amitriptyline HCl 25 MG TAB PO SCH ×2 (09:14→21:47)
[2021-04-29] MEDS: cefTRIAXone\\ROCEPHIN 1 GM in Sodium Chloride 0.9% 100 ML IVPB SCH (11:08)
[2021-04-29] MEDS: Sacubitril 49 MG/Valsartan 51 MG TABLET PO SCH (21:47)
[2021-04-29] MEDS: Atorvastatin Calcium 40 MG TAB PO SCH (21:47)
[2021-04-29] MEDS: traMADol HCl 50 MG TAB PO PRN (21:48)
[2021-04-30] MEDS ORDERED: Carvedilol 6.25 MG TAB PO SCH (08:30)
[2021-04-30] MEDS: Polyethylene Glycol 3350 17 GM Packet PO SCH (08:46)
[2021-04-30] MEDS: Aspirin Chewable 81 MG TAB PO SCH (08:47)
[2021-04-30] MEDS: Azithromycin 250 MG TAB PO SCH (08:48)
[2021-04-30] MEDS: hydrALAZINE 25 MG TAB PO SCH ×3 (08:48→21:22)
[2021-04-30] MEDS: Clopidogrel Bisulfate 75 MG TAB PO SCH (08:48)
[2021-04-30] MEDS: Spironolactone 25 MG TAB PO SCH (08:48)
[2021-04-30] MEDS: Furosemide 20 MG TAB PO SCH (08:48)
[2021-04-30] MEDS: Amitriptyline HCl 25 MG TAB PO SCH ×2 (08:48→21:23)
[2021-04-30] MEDS: Sacubitril 49 MG/Valsartan 51 MG TABLET PO SCH ×2 (08:48→21:22)
[2021-04-30] MEDS: Enoxaparin Sodium 30 MG/0.3 ML SYRINGE SC SCH (08:49)
[2021-04-30] MEDS: Carvedilol 6.25 MG TAB PO SCH ×2 (09:09→16:55)
[2021-04-30 10:47] LABS: Anion Gap 14 mmol/L (10-20); BUN (Urea Nitrogen) 26 mg/dL (9.8-20.1); Calc. Creatinine Clearance 42 mL/min (70-130); Calcium 8.6 mg/dL (7.8-10.44); Carbon Dioxide 23 mmol/L (23-31); Chloride 105 mmol/L (98-107); Glucose 113 mg/dL (80-115); Potassium 4.1 mmol/L (3.5-5.1); Sodium 138 mmol/L (136-145)
[2021-04-30] MEDS: cefTRIAXone\\ROCEPHIN 1 GM in Sodium Chloride 0.9% 100 ML IVPB SCH (11:44)
[2021-04-30] MEDS: Atorvastatin Calcium 40 MG TAB PO SCH (21:22)
[2021-04-30] MEDS: traMADol HCl 50 MG TAB PO PRN (21:23)
[2021-05-01] MEDS: Amitriptyline HCl 25 MG TAB PO SCH ×2 (09:39→20:05)
[2021-05-01] MEDS: Aspirin Chewable 81 MG TAB PO SCH (09:39)
[2021-05-01] MEDS: Clopidogrel Bisulfate 75 MG TAB PO SCH (09:40)
[2021-05-01] MEDS: Polyethylene Glycol 3350 17 GM Packet PO SCH (09:40)
[2021-05-01] MEDS: Sacubitril 49 MG/Valsartan 51 MG TABLET PO SCH ×2 (09:40→20:05)
[2021-05-01] MEDS: Carvedilol 6.25 MG TAB PO SCH ×2 (09:40→15:40)
[2021-05-01] MEDS: Furosemide 20 MG TAB PO SCH (09:40)
[2021-05-01] MEDS: Azithromycin 250 MG TAB PO SCH (09:40)
[2021-05-01] MEDS: hydrALAZINE 25 MG TAB PO SCH ×3 (09:40→20:05)
[2021-05-01] MEDS: Spironolactone 25 MG TAB PO SCH (09:40)
[2021-05-01] MEDS: Enoxaparin Sodium 30 MG/0.3 ML SYRINGE SC SCH (09:40)
[2021-05-01] MEDS: diphenhydrAMINE 25 MG CAP PO PRN ×2 (09:41→23:54)
[2021-05-01] MEDS ORDERED: Furosemide 40 MG/4 ML VIAL SLOW IVP SCH ×2 (10:15→18:00)
[2021-05-01 11:13] LABS: HCV log10 5.918 (.); Hep C PCR-Quant 828000 IU/mL (.)
[2021-05-01] MEDS: cefTRIAXone\\ROCEPHIN 1 GM in Sodium Chloride 0.9% 100 ML IVPB SCH (12:50)
[2021-05-01] MEDS: traMADol HCl 50 MG TAB PO PRN (12:56)
[2021-05-01] MEDS: Atorvastatin Calcium 40 MG TAB PO SCH (20:05)
[2021-05-02] MEDS: Furosemide 40 MG/4 ML VIAL SLOW IVP SCH ×2 (05:03→15:33)
[2021-05-02] MEDS: Aspirin Chewable 81 MG TAB PO SCH (09:53)
[2021-05-02] MEDS: Azithromycin 250 MG TAB PO SCH (09:53)
[2021-05-02] MEDS: Polyethylene Glycol 3350 17 GM Packet PO SCH (09:53)
[2021-05-02] MEDS: Sacubitril 49 MG/Valsartan 51 MG TABLET PO SCH ×2 (09:53→21:20)
[2021-05-02] MEDS: Enoxaparin Sodium 30 MG/0.3 ML SYRINGE SC SCH (09:53)
[2021-05-02] MEDS: Clopidogrel Bisulfate 75 MG TAB PO SCH (09:53)
[2021-05-02] MEDS: Amitriptyline HCl 25 MG TAB PO SCH ×2 (09:53→21:20)
[2021-05-02] MEDS: hydrALAZINE 25 MG TAB PO SCH ×3 (09:53→21:22)
[2021-05-02] MEDS: Carvedilol 6.25 MG TAB PO SCH ×2 (09:53→15:34)
[2021-05-02] MEDS: Spironolactone 25 MG TAB PO SCH (09:53)
[2021-05-02] MEDS ORDERED: Bisacodyl 10 MG SUPP PR SCH (11:00)
[2021-05-02] MEDS: cefTRIAXone\\ROCEPHIN 1 GM in Sodium Chloride 0.9% 100 ML IVPB SCH (14:10)
[2021-05-02] MEDS: traMADol HCl 50 MG TAB PO PRN ×2 (15:34→21:20)
[2021-05-02] MEDS ORDERED: Communication Order-Pharmacy FS SCH (18:15)
[2021-05-02] MEDS ORDERED: GUAIFENESIN SF SOLN 200 MG/10 ML UDCUP PO PRN (18:18)
[2021-05-02] MEDS ORDERED: Pantoprazole 40 MG GRANULES PACKET PO SCH (18:30)
[2021-05-02] MEDS: Atorvastatin Calcium 40 MG TAB PO SCH (21:20)
[2021-05-02] MEDS: Benzonatate 100 MG CAP PO SCH (21:20)
[2021-05-03] MEDS ORDERED: Sodium Chloride 0.9% 250 ML IV SCH ×2 (00:01→11:15)
[2021-05-03 05:39] LABS: #Basophils 0.1 thou/uL (0.0-0.2); #Eosinphils 0.2 thou/uL (0.0-0.7); #Monocytes 0.7 thou/uL (0.11-0.59); #Neutrophils 2.3 thou/uL (1.40-6.50); %Basophils 1.5 % (0.0-1.0); %Eosinophils 3.1 % (0.0-10.0); %Lymphocytes 37.5 % (21.0-51.0); %Monocytes 13.7 % (0.0-10.0); %Neutrophils 44.2 % (42.0-75.0); Mean Corpuscular HGB CONC 32.5 g/dL (32.0-36.0); Mean Corpuscular Hemoglobin 34.2 pg (27.0-31.0); Mean Platelet Volume 8.9 fL (7.4-10.4); Platelet Count 214 thou/uL (130-400); RBC Distribution Width 12.8 % (11.5-14.5); Red Blood Cell (RBC) Count 4.39 mill/uL (4.20-5.40); White Blood Cell (WBC) Count 5.2 thou/uL (4.8-10.8)
[2021-05-03] MEDS: Furosemide 40 MG/4 ML VIAL SLOW IVP SCH ×2 (07:14→15:51)
[2021-05-03 08:38] LABS: Anion Gap 17 mmol/L (10-20); BUN (Urea Nitrogen) 59 mg/dL (9.8-20.1); Calc. Creatinine Clearance 29 mL/min (70-130); Carbon Dioxide 23 mmol/L (23-31); Chloride 100 mmol/L (98-107); Glucose 105 mg/dL (80-115); Potassium 4.7 mmol/L (3.5-5.1); Sodium 135 mmol/L (136-145)
[2021-05-03] MEDS ORDERED: Lidocaine 1% (PF) 30 ML VIAL ONE (09:23)
[2021-05-03] MEDS ORDERED: Heparin 10,000 UNITS/ 10 ML VIAL ONE (10:36)
[2021-05-03] MEDS ORDERED: Nitroglycerin 100MG/250ML BOT 250 ML ONE (10:50)
[2021-05-03] MEDS ORDERED: TICAGRELOR 90 MG TABLET ONE (10:51)
[2021-05-03] MEDS: Carvedilol 6.25 MG TAB PO SCH ×2 (15:22→15:50)
[2021-05-03] MEDS: Benzonatate 100 MG CAP PO SCH ×3 (15:23→21:01)
[2021-05-03] MEDS: Amitriptyline HCl 25 MG TAB PO SCH ×2 (15:23→21:02)
[2021-05-03] MEDS: hydrALAZINE 25 MG TAB PO SCH ×3 (15:24→21:01)
[2021-05-03] MEDS: Sacubitril 49 MG/Valsartan 51 MG TABLET PO SCH ×2 (15:24→21:01)
[2021-05-03] MEDS: traMADol HCl 50 MG TAB PO PRN ×2 (15:48→22:26)
[2021-05-03] MEDS: Spironolactone 25 MG TAB PO SCH (15:53)
[2021-05-03] MEDS: Aspirin Chewable 81 MG TAB PO SCH (15:53)
[2021-05-03] MEDS: Pantoprazole 40 MG GRANULES PACKET PO SCH (15:54)
[2021-05-03] MEDS: Clopidogrel Bisulfate 75 MG TAB PO SCH (15:54)
[2021-05-03] MEDS: cefTRIAXone\\ROCEPHIN 1 GM in Sodium Chloride 0.9% 100 ML IVPB SCH (16:20)
[2021-05-03] MEDS: Polyethylene Glycol 3350 17 GM Packet PO SCH (16:21)
[2021-05-03] MEDS ORDERED: HYDROcodone/Acetaminophen 5/325 mg Tablet PO SCH (20:30)
[2021-05-03] MEDS: Atorvastatin Calcium 40 MG TAB PO SCH (21:02)
[2021-05-04 04:40] LABS: #Eosinphils 0.2 thou/uL (0.0-0.7); #Lymphocytes 1.4 thou/uL (1.20-3.40); #Monocytes 0.6 thou/uL (0.11-0.59); #Neutrophils 2.2 thou/uL (1.40-6.50); %Basophils 1.1 % (0.0-1.0); %Eosinophils 5.1 % (0.0-10.0); %Lymphocytes 32.2 % (21.0-51.0); %Monocytes 13.4 % (0.0-10.0); %Neutrophils 48.2 % (42.0-75.0); Mean Corpuscular HGB CONC 32.8 g/dL (32.0-36.0); Mean Corpuscular Hemoglobin 34.4 pg (27.0-31.0); Mean Platelet Volume 8.8 fL (7.4-10.4); Platelet Count 205 thou/uL (130-400); RBC Distribution Width 12.7 % (11.5-14.5); Red Blood Cell (RBC) Count 4.08 mill/uL (4.20-5.40); White Blood Cell (WBC) Count 4.5 thou/uL (4.8-10.8)
[2021-05-04 04:54] LABS: ALT (SGPT) 53 U/L (8-55); AST (SGOT) 70 U/L (5-34); Albumin 3.3 g/dL (3.4-4.8); Alkaline Phosphatase 57 U/L (40-110); Anion Gap 12 mmol/L (10-20); BUN (Urea Nitrogen) 43 mg/dL (9.8-20.1); Bilirubin, Total 0.3 mg/dL (0.2-1.2); Calc. Creatinine Clearance 38 mL/min (70-130); Calcium 8.4 mg/dL (7.8-10.44); Carbon Dioxide 25 mmol/L (23-31); Chloride 104 mmol/L (98-107); Globulin 3.4 g/dL (2.4-3.5); Glucose 113 mg/dL (80-115); Potassium 4.2 mmol/L (3.5-5.1); Protein, Total 6.7 g/dL (5.8-8.1); Sodium 137 mmol/L (136-145)
[2021-05-04] MEDS: Furosemide 40 MG/4 ML VIAL SLOW IVP SCH ×2 (05:58→14:38)
[2021-05-04] MEDS: Carvedilol 6.25 MG TAB PO SCH ×2 (08:46→17:16)
[2021-05-04] MEDS: hydrALAZINE 25 MG TAB PO SCH ×3 (08:46→20:13)
[2021-05-04] MEDS: Sacubitril 49 MG/Valsartan 51 MG TABLET PO SCH ×2 (08:46→20:13)
[2021-05-04] MEDS: Benzonatate 100 MG CAP PO SCH ×3 (08:47→20:13)
[2021-05-04] MEDS: Aspirin Chewable 81 MG TAB PO SCH (08:47)
[2021-05-04] MEDS: Amitriptyline HCl 25 MG TAB PO SCH ×2 (08:47→20:13)
[2021-05-04] MEDS: Clopidogrel Bisulfate 75 MG TAB PO SCH (08:47)
[2021-05-04] MEDS: Spironolactone 25 MG TAB PO SCH (08:47)
[2021-05-04] MEDS: Pantoprazole 40 MG GRANULES PACKET PO SCH (08:47)
[2021-05-04] MEDS: traMADol HCl 50 MG TAB PO PRN (08:48)
[2021-05-04] MEDS: Polyethylene Glycol 3350 17 GM Packet PO SCH (08:48)
[2021-05-04] MEDS ORDERED: Magnesium Citrate 300 ML BOT PO SCH (11:15)
[2021-05-04] MEDS: cefTRIAXone\\ROCEPHIN 1 GM in Sodium Chloride 0.9% 100 ML IVPB SCH (12:39)
[2021-05-04] MEDS: Atorvastatin Calcium 40 MG TAB PO SCH (20:13)
[2021-05-05] MEDS: Furosemide 40 MG/4 ML VIAL SLOW IVP SCH (05:39)
[2021-05-05] MEDS: Polyethylene Glycol 3350 17 GM Packet PO SCH (09:55)
[2021-05-05] MEDS: Pantoprazole 40 MG GRANULES PACKET PO SCH (09:55)
[2021-05-05] MEDS: Aspirin Chewable 81 MG TAB PO SCH (09:55)
[2021-05-05] MEDS: Clopidogrel Bisulfate 75 MG TAB PO SCH (09:56)
[2021-05-05] MEDS: Benzonatate 100 MG CAP PO SCH ×3 (09:56→20:13)
[2021-05-05] MEDS: Sacubitril 49 MG/Valsartan 51 MG TABLET PO SCH ×2 (09:56→20:12)
[2021-05-05] MEDS: Spironolactone 25 MG TAB PO SCH (09:56)
[2021-05-05] MEDS: hydrALAZINE 25 MG TAB PO SCH ×3 (09:56→20:12)
[2021-05-05] MEDS: Carvedilol 6.25 MG TAB PO SCH ×2 (09:56→17:50)
[2021-05-05] MEDS: Amitriptyline HCl 25 MG TAB PO SCH ×2 (09:56→20:12)
[2021-05-05] MEDS: cefTRIAXone\\ROCEPHIN 1 GM in Sodium Chloride 0.9% 100 ML IVPB SCH (13:30)
[2021-05-05] MEDS: Furosemide 40 MG TAB PO SCH (15:24)
[2021-05-05] MEDS: Atorvastatin Calcium 40 MG TAB PO SCH (20:13)
[2021-05-06 04:53] LABS: Anion Gap 15 mmol/L (10-20); BUN (Urea Nitrogen) 46 mg/dL (9.8-20.1); Calc. Creatinine Clearance 31 mL/min (70-130); Carbon Dioxide 25 mmol/L (23-31); Chloride 102 mmol/L (98-107); Glucose 143 mg/dL (80-115); Potassium 4.3 mmol/L (3.5-5.1); Sodium 138 mmol/L (136-145)
[2021-05-06] MEDS ORDERED: Enoxaparin Sodium 40 MG/0.4 ML SYRINGE SC SCH (09:00)
[2021-05-06] MEDS: Clopidogrel Bisulfate 75 MG TAB PO SCH (09:39)
[2021-05-06] MEDS: Benzonatate 100 MG CAP PO SCH (09:39)
[2021-05-06] MEDS: Carvedilol 6.25 MG TAB PO SCH (09:40)
[2021-05-06] MEDS: Sacubitril 49 MG/Valsartan 51 MG TABLET PO SCH (09:40)
[2021-05-06] MEDS: Spironolactone 25 MG TAB PO SCH (09:40)
[2021-05-06] MEDS: Amitriptyline HCl 25 MG TAB PO SCH (09:40)
[2021-05-06] MEDS: hydrALAZINE 25 MG TAB PO SCH (09:40)
[2021-05-06] MEDS: Aspirin Chewable 81 MG TAB PO SCH (09:40)
[2021-05-06] MEDS: Furosemide 40 MG TAB PO SCH ×2 (09:40→13:46)
[2021-05-06] MEDS: Pantoprazole 40 MG GRANULES PACKET PO SCH (09:41)
[2021-05-06] MEDS: Polyethylene Glycol 3350 17 GM Packet PO SCH (09:41)
[2021-05-06] MEDS: traMADol HCl 50 MG TAB PO PRN (11:01)
[2021-05-06] MEDS: cefTRIAXone\\ROCEPHIN 1 GM in Sodium Chloride 0.9% 100 ML IVPB SCH (13:47)
[2021-05-06 19:49] VITALS: BP 126/75; TEMP 97.7
== END 2021-05-06 14:15 | disposition home or self-care (01) | DRG 248 ==
LOC: ERS 03:05 → ERHOLD 05:59 → 2SW 10:35 → OBSVTOIN 04-28 09:29 → 2NO 04-28 17:57
PROVIDERS: ADMIT Internal Medicine; ATTEND Internal Medicine
PROC: 02703DZ Dilation of Coronary Artery, One Artery with Intraluminal Device, Percutaneous Approach (ICD-10-PCS; principal; 2021-05-03)
PROC: B2111ZZ Fluoroscopy of Multiple Coronary Arteries using Low Osmolar Contrast (ICD-10-PCS; 2021-05-03)
DX: I13.0 Hypertensive heart and chronic kidney disease with heart failure and stage 1 through stage 4 chronic kidney disease, or unspecified chronic kidney disease (principal); I50.43 Acute on chronic combined systolic (congestive) and diastolic (congestive) heart failure; N17.9 Acute kidney failure, unspecified; R04.2 Hemoptysis; Z20.822 Contact with and (suspected) exposure to COVID-19; I25.10 Atherosclerotic heart disease of native coronary artery without angina pectoris; F14.10 Cocaine abuse, uncomplicated; B18.2 Chronic viral hepatitis C; I08.1 Rheumatic disorders of both mitral and tricuspid valves; I27.20 Pulmonary hypertension, unspecified; F31.9 Bipolar disorder, unspecified; I16.0 Hypertensive urgency; N18.30 Chronic kidney disease, stage 3 unspecified; I25.5 Ischemic cardiomyopathy; D69.6 Thrombocytopenia, unspecified; K76.1 Chronic passive congestion of liver; F20.9 Schizophrenia, unspecified; F41.9 Anxiety disorder, unspecified; K59.00 Constipation, unspecified; Z88.6 Allergy status to analgesic agent; Z88.5 Allergy status to narcotic agent; Z88.8 Allergy status to other drugs, medicaments and biological substances; Z95.1 Presence of aortocoronary bypass graft; Z79.899 Other long term (current) drug therapy; Z79.82 Long term (current) use of aspirin; Z90.49 Acquired absence of other specified parts of digestive tract; I25.2 Old myocardial infarction; Z82.49 Family history of ischemic heart disease and other diseases of the circulatory system; Z79.02 Long term (current) use of antithrombotics/antiplatelets; Z87.891 Personal history of nicotine dependence; Z71.51 Drug abuse counseling and surveillance of drug abuser; Q63.1 Lobulated, fused and horseshoe kidney
CPT/HCPCS: 36415; 71045; 71260; 74018; 74176; 80048; 80053; 80306; 82553; 83690; 83735; 83880; 84484; 85025; 85347; 87070; 87205; 87522; 92928; 93005; 93010; 93306; 93454; 93798; 96372; 96374; 96375; 96376; C1769; C1876; G0378; J0360; J0456; J0500; J0696; J1644; J1650; J1940; J2001; J2270; J2405; J3490; J7050; Q0163; Q9967; U0003; U0005

== ENCOUNTER 2022-07-23 23:59 | Inpatient (IN) | payer MEDICARE ==
[2022-07-24 01:49] LABS: Hemoglobin 13.6 g/dL (12.0-16.0); Mean Corpuscular HGB CONC 32.7 g/dL (32.0-36.0); Mean Corpuscular Hemoglobin 34.4 pg (27.0-31.0); Platelet Count 175 thou/uL (130-400); RBC Distribution Width 12.1 % (11.5-14.5); Red Blood Cell (RBC) Count 3.96 mill/uL (4.20-5.40); White Blood Cell (WBC) Count 4.8 thou/uL (4.8-10.8)
[2022-07-24 02:01] LABS: ALT (SGPT) 18 U/L (8-55); AST (SGOT) 23 U/L (5-34); Albumin 3.6 g/dL (3.4-4.8); Alkaline Phosphatase 68 U/L (40-110); Anion Gap 14 mmol/L (10-20); BUN (Urea Nitrogen) 28 mg/dL (9.8-20.1); Bilirubin, Total 0.5 mg/dL (0.2-1.2); Calc. Creatinine Clearance 0 mL/min (70-130); Calcium 8.8 mg/dL (7.8-10.44); Carbon Dioxide 19 mmol/L (23-31); Chloride 109 mmol/L (98-107); Estimated GFR 52; Globulin 3.5 g/dL (2.4-3.5); Glucose 113 mg/dL (80-115); Potassium 4.2 mmol/L (3.5-5.1); Protein, Total 7.1 g/dL (5.8-8.1); Sodium 138 mmol/L (136-145)
[2022-07-24] MEDS ORDERED: Furosemide 40 MG/4 ML VIAL ONE ×2 (02:12→02:32)
[2022-07-24 02:22] LABS: CKMB 3.3 ng/mL (0-6.6)
[2022-07-24 02:23] LABS: #Eosinphils 0.1 thou/uL (0.0-0.7); #Lymphocytes 1.6 thou/uL (1.20-3.40); #Monocytes 0.3 thou/uL (0.11-0.59); #Neutrophils 2.7 thou/uL (1.40-6.50); %Basophils 0.8 % (0.0-1.0); %Eosinophils 2.6 % (0.0-10.0); %Lymphocytes 33.7 % (21.0-51.0); %Monocytes 6.5 % (0.0-10.0); %Neutrophils 56.4 % (42.0-75.0); MDiff Complete? YES; Macrocytosis SLIGHT = 6-15 cells (100X) (0-5/hpf); Platelet Morphology Comment PLT clumps seen-ADEQ
[2022-07-24] MEDS ORDERED: Morphine 4 MG/ML VIAL ONE (02:32)
[2022-07-24] MEDS ORDERED: Ondansetron PF 4 MG/2 ML Vial IVP PRN (05:02)
[2022-07-24] MEDS ORDERED: Acetaminophen 325 MG TAB PO PRN (05:02)
[2022-07-24] MEDS ORDERED: Ondansetron ODT 4 MG TAB PO PRN (05:02)
[2022-07-24] MEDS ORDERED: Acetaminophen 650 MG Suppository PR PRN (05:02)
[2022-07-24] MEDS ORDERED: hydrALAZINE 20 MG/ML VIAL SLOW IVP PRN (05:07)
[2022-07-24] MEDS ORDERED: Electrolyte Replacement Protocol 1 EACH FS PRN (05:15)
[2022-07-24] MEDS ORDERED: hydrALAZINE 20 MG/ML VIAL ONE (05:55)
[2022-07-24] MEDS ORDERED: Furosemide 40 MG/4 ML VIAL SLOW IVP SCH (06:00)
[2022-07-24 06:25] LABS: Anion Gap 14 mmol/L (10-20); BUN (Urea Nitrogen) 27 mg/dL (9.8-20.1); Calc. Creatinine Clearance 0 mL/min (70-130); Carbon Dioxide 21 mmol/L (23-31); Chloride 107 mmol/L (98-107); Estimated GFR 49; Glucose 120 mg/dL (80-115); Magnesium 1.7 mg/dL (1.6-2.6); Potassium 4.3 mmol/L (3.5-5.1); Sodium 138 mmol/L (136-145)
[2022-07-24] MEDS ORDERED: Furosemide 20 MG/2 ML VIAL ONE (06:54)
[2022-07-24] MEDS ORDERED: Magnesium 2 GM/50 ML(in water) 2 GM in Premix Bag 1 BAG IVPB SCH (08:00)
[2022-07-24] MEDS ORDERED: Enoxaparin Sodium 40 MG/0.4 ML SYRINGE ONE (08:16)
[2022-07-24] MEDS ORDERED: Aspirin Chewable 81 MG TAB ONE (08:16)
[2022-07-24] MEDS ORDERED: Magnesium 2 GM/50 ML BAG (IN WATER) ONE (08:16)
[2022-07-24] MEDS ORDERED: Morphine 2 MG/ML VIAL SLOW IVP PRN (08:17)
[2022-07-24] MEDS: Carvedilol 6.25 MG TAB PO SCH ×2 (08:28→16:26)
[2022-07-24] MEDS: Aspirin 81 mg Enteric Coated Tablet PO SCH (08:29)
[2022-07-24] MEDS: Spironolactone 25 MG TAB PO SCH (08:29)
[2022-07-24] MEDS: Enoxaparin Sodium 40 MG/0.4 ML SYRINGE SC SCH (08:29)
[2022-07-24] MEDS: Sacubitril 49 MG/Valsartan 51 MG TABLET PO SCH ×2 (08:29→20:27)
[2022-07-24] MEDS ORDERED: Morphine 2 MG/ML VIAL ONE (09:02)
[2022-07-24 09:14] LABS: SARS-CoV-2 NAA Rapid Test Not Detected (NotDetected)
[2022-07-24 11:33] VITALS: BMI 21.6
[2022-07-24] MEDS: Furosemide 40 MG/4 ML VIAL SLOW IVP SCH (16:26)
[2022-07-25] MEDS: Furosemide 40 MG/4 ML VIAL SLOW IVP SCH ×2 (05:39→14:45)
[2022-07-25] MEDS: Enoxaparin Sodium 40 MG/0.4 ML SYRINGE SC SCH (08:40)
[2022-07-25] MEDS: Aspirin 81 mg Enteric Coated Tablet PO SCH (08:40)
[2022-07-25] MEDS: Carvedilol 6.25 MG TAB PO SCH ×2 (08:40→17:08)
[2022-07-25] MEDS: Spironolactone 25 MG TAB PO SCH (08:40)
[2022-07-25] MEDS: Sacubitril 49 MG/Valsartan 51 MG TABLET PO SCH ×2 (08:40→20:11)
[2022-07-25 09:15] LABS: Anion Gap 19 mmol/L (10-20); BUN (Urea Nitrogen) 29 mg/dL (9.8-20.1); Calc. Creatinine Clearance 28 mL/min (70-130); Calcium 8.7 mg/dL (7.8-10.44); Carbon Dioxide 20 mmol/L (23-31); Chloride 101 mmol/L (98-107); Estimated GFR 42; Glucose 149 mg/dL (80-115); Potassium 4.6 mmol/L (3.5-5.1); Sodium 135 mmol/L (136-145)
[2022-07-25 10:05] LABS: Band 2 % (5-11); Eosinophils 4 % (0-10); Hemoglobin 16.5 g/dL (12.0-16.0); Lymphocytes 34 % (21-51); MDiff Complete? YES; Mean Corpuscular HGB CONC 32.4 g/dL (32.0-36.0); Mean Corpuscular Hemoglobin 33.8 pg (27.0-31.0); Mean Platelet Volume 10.1 fL (7.4-10.4); Monocytes 8 % (0-10); Neutrophil 52 % (42-75); Platelet Clumps MODERATE; Platelet Morphology Comment Appears Adequate; Polychromasia SLIGHT = 2-3 cells (100X) (0-2/hpf); RBC Distribution Width 12.3 % (11.5-14.5); Red Blood Cell (RBC) Count 4.89 mill/uL (4.20-5.40); White Blood Cell (WBC) Count 4.4 thou/uL (4.8-10.8)
[2022-07-25] MEDS: hydrOXYzine 25 MG TAB PO PRN ×2 (17:08→22:13)
[2022-07-25] MEDS: Melatonin 3 MG TAB PO SCH (20:11)
[2022-07-25] MEDS: DOBUTamine 500 mg/250 ml 250 ML IVPB SCH (20:21)
[2022-07-26 01:44] LABS: Legionella Urinary Ag Negative (Negative); Strep pneumo Urine Ag NEGATIVE (NEGATIVE)
[2022-07-26] MEDS: Furosemide 40 MG/4 ML VIAL SLOW IVP SCH ×2 (05:23→15:15)
[2022-07-26 05:54] LABS: Anion Gap 18 mmol/L (10-20); BUN (Urea Nitrogen) 47 mg/dL (9.8-20.1); Calc. Creatinine Clearance 28 mL/min (70-130); Calcium 8.9 mg/dL (7.8-10.44); Carbon Dioxide 20 mmol/L (23-31); Chloride 102 mmol/L (98-107); Estimated GFR 42; Glucose 105 mg/dL (80-115); Magnesium 1.9 mg/dL (1.6-2.6); Potassium 4.1 mmol/L (3.5-5.1); Sodium 136 mmol/L (136-145)
[2022-07-26 06:14] LABS: Hemoglobin 15.5 g/dL (12.0-16.0); Lymphocytes 40 % (21-51); MDiff Complete? YES; Mean Corpuscular HGB CONC 32.1 g/dL (32.0-36.0); Mean Corpuscular Hemoglobin 33.4 pg (27.0-31.0); Mean Platelet Volume 10.5 fL (7.4-10.4); Monocytes 5 % (0-10); Neutrophil 55 % (42-75); Platelet Clumps MODERATE; Platelet Count 222 thou/uL (130-400); Platelet Morphology Comment Appears Adequate; RBC Distribution Width 12.3 % (11.5-14.5); Red Blood Cell (RBC) Count 4.63 mill/uL (4.20-5.40)
[2022-07-26] MEDS ORDERED: Magnesium 2 GM/50 ML(in water) 2 GM in Premix Bag 1 BAG IVPB SCH (08:00)
[2022-07-26] MEDS: HYDROcodone/Acetaminophen 5/325 mg Tablet PO PRN ×3 (09:14→20:39)
[2022-07-26] MEDS: Carvedilol 6.25 MG TAB PO SCH ×2 (09:16→17:55)
[2022-07-26] MEDS: Aspirin 81 mg Enteric Coated Tablet PO SCH (09:16)
[2022-07-26] MEDS: Enoxaparin Sodium 30 MG/0.3 ML SYRINGE SC SCH (09:16)
[2022-07-26] MEDS: Spironolactone 25 MG TAB PO SCH (09:17)
[2022-07-26] MEDS: Sacubitril 49 MG/Valsartan 51 MG TABLET PO SCH ×2 (09:17→20:39)
[2022-07-26] MEDS: hydrOXYzine 25 MG TAB PO PRN (15:14)
[2022-07-26] MEDS: Melatonin 3 MG TAB PO SCH (20:39)
[2022-07-27 06:08] LABS: Anion Gap 15 mmol/L (10-20); BUN (Urea Nitrogen) 60 mg/dL (9.8-20.1); Calc. Creatinine Clearance 29 mL/min (70-130); Carbon Dioxide 24 mmol/L (23-31); Chloride 101 mmol/L (98-107); Estimated GFR 41; Glucose 124 mg/dL (80-115); Magnesium 2.3 mg/dL (1.6-2.6); Potassium 3.9 mmol/L (3.5-5.1); Sodium 136 mmol/L (136-145)
[2022-07-27] MEDS: Furosemide 40 MG/4 ML VIAL SLOW IVP SCH ×2 (06:08→14:49)
[2022-07-27 06:33] LABS: Eosinophils 2 % (0-10); Hemoglobin 14.9 g/dL (12.0-16.0); Lymphocytes 22 % (21-51); MDiff Complete? YES; Macrocytosis MODERATE=16-30 cells (100X) (0-5/hpf); Mean Corpuscular HGB CONC 31.9 g/dL (32.0-36.0); Mean Corpuscular Hemoglobin 33.3 pg (27.0-31.0); Mean Platelet Volume 9.6 fL (7.4-10.4); Monocytes 7 % (0-10); Neutrophil 68 % (42-75); Ovalocytes SLIGHT = 2-5 cells (100X) (0-1/hpf); Platelet Morphology Comment Appears Adequate; RBC Distribution Width 12.3 % (11.5-14.5); Reactive Lymphocytes 1 % (0-10); Red Blood Cell (RBC) Count 4.49 mill/uL (4.20-5.40); White Blood Cell (WBC) Count 7.1 thou/uL (4.8-10.8)
[2022-07-27 06:46] LABS: Platelet Count 231 thou/uL (130-400)
[2022-07-27] MEDS: Carvedilol 6.25 MG TAB PO SCH ×2 (09:23→17:41)
[2022-07-27] MEDS: Spironolactone 25 MG TAB PO SCH (09:23)
[2022-07-27] MEDS: Aspirin 81 mg Enteric Coated Tablet PO SCH (09:24)
[2022-07-27] MEDS: Sacubitril 49 MG/Valsartan 51 MG TABLET PO SCH ×2 (09:24→20:56)
[2022-07-27] MEDS: Enoxaparin Sodium 30 MG/0.3 ML SYRINGE SC SCH (09:24)
[2022-07-27] MEDS: hydrOXYzine 25 MG TAB PO PRN ×3 (09:24→23:53)
[2022-07-27] MEDS: DOBUTamine 500 mg/250 ml 250 ML IVPB SCH (10:21)
[2022-07-27] MEDS ORDERED: DOBUTamine 500 mg/250 ml 250 ML IVPB SCH (13:55)
[2022-07-27] MEDS: HYDROcodone/Acetaminophen 5/325 mg Tablet PO PRN (20:55)
[2022-07-27] MEDS: Melatonin 3 MG TAB PO SCH (20:56)
[2022-07-28] MEDS: Furosemide 40 MG/4 ML VIAL SLOW IVP SCH (05:28)
[2022-07-28] MEDS: Aspirin 81 mg Enteric Coated Tablet PO SCH (09:58)
[2022-07-28] MEDS: Spironolactone 25 MG TAB PO SCH (09:58)
[2022-07-28] MEDS: Carvedilol 6.25 MG TAB PO SCH ×2 (09:58→16:47)
[2022-07-28] MEDS: Enoxaparin Sodium 30 MG/0.3 ML SYRINGE SC SCH (09:58)
[2022-07-28] MEDS: Furosemide 40 MG TAB PO SCH ×2 (09:58→14:05)
[2022-07-28] MEDS: Sacubitril 49 MG/Valsartan 51 MG TABLET PO SCH ×2 (09:58→21:24)
[2022-07-28] MEDS: HYDROcodone/Acetaminophen 5/325 mg Tablet PO PRN ×2 (10:02→21:24)
[2022-07-28 11:46] LABS: White Blood Cell (WBC) Count 5.6 thou/uL (4.8-10.8)
[2022-07-28 11:47] LABS: Hemoglobin 14.9 g/dL (12.0-16.0); Mean Corpuscular HGB CONC 33.9 g/dL (32.0-36.0); Mean Corpuscular Hemoglobin 36.1 pg (27.0-31.0); Mean Platelet Volume 10.1 fL (7.4-10.4); Platelet Count 149 thou/uL (130-400); RBC Distribution Width 12.2 % (11.5-14.5); Red Blood Cell (RBC) Count 4.13 mill/uL (4.20-5.40)
[2022-07-28 12:07] LABS: #Basophils 0.1 thou/uL (0.0-0.2); #Eosinphils 0.1 thou/uL (0.0-0.7); #Lymphocytes 1.2 thou/uL (1.20-3.40); #Monocytes 0.5 thou/uL (0.11-0.59); #Neutrophils 3.8 thou/uL (1.40-6.50); %Basophils 1.1 % (0.0-1.0); %Lymphocytes 20.7 % (21.0-51.0); %Monocytes 9.3 % (0.0-10.0); %Neutrophils 66.9 % (42.0-75.0); MDiff Complete? YES; Macrocytosis SLIGHT = 6-15 cells (100X) (0-5/hpf); Platelet Clumps MODERATE
[2022-07-28 12:18] LABS: Anion Gap 16 mmol/L (10-20); BUN (Urea Nitrogen) 47 mg/dL (9.8-20.1); Calc. Creatinine Clearance 36 mL/min (70-130); Calcium 8.8 mg/dL (7.8-10.44); Carbon Dioxide 20 mmol/L (23-31); Chloride 106 mmol/L (98-107); Estimated GFR 53; Glucose 117 mg/dL (80-115); Magnesium 1.9 mg/dL (1.6-2.6); Potassium 4.9 mmol/L (3.5-5.1); Sodium 137 mmol/L (136-145)
[2022-07-28] MEDS ORDERED: Magnesium 2 GM/50 ML(in water) 2 GM in Premix Bag 1 BAG IVPB SCH (13:30)
[2022-07-28] MEDS ORDERED: Electrolyte Replacement Protocol FS PRN (13:30)
[2022-07-28] MEDS: hydrOXYzine 25 MG TAB PO PRN ×2 (16:48→21:25)
[2022-07-28] MEDS: Melatonin 3 MG TAB PO SCH (21:24)
[2022-07-29] MEDS: Aspirin 81 mg Enteric Coated Tablet PO SCH (08:06)
[2022-07-29] MEDS: Enoxaparin Sodium 30 MG/0.3 ML SYRINGE SC SCH (08:07)
[2022-07-29] MEDS: Furosemide 40 MG TAB PO SCH ×2 (08:07→13:16)
[2022-07-29] MEDS: Spironolactone 25 MG TAB PO SCH (08:07)
[2022-07-29] MEDS: Sacubitril 49 MG/Valsartan 51 MG TABLET PO SCH (08:07)
[2022-07-29] MEDS: Carvedilol 6.25 MG TAB PO SCH (08:07)
[2022-07-29] MEDS: HYDROcodone/Acetaminophen 5/325 mg Tablet PO PRN (08:09)
[2022-07-29 09:18] LABS: Chloride 104 mmol/L (98-107); Potassium 4.4 mmol/L (3.5-5.1); Sodium 135 mmol/L (136-145)
[2022-07-29 09:31] LABS: BUN (Urea Nitrogen) 54 mg/dL (9.8-20.1); Calc. Creatinine Clearance 32 mL/min (70-130); Calcium 8.8 mg/dL (7.8-10.44); Carbon Dioxide 19 mmol/L (23-31); Estimated GFR 41; Glucose 103 mg/dL (80-115); Magnesium 2.2 mg/dL (1.6-2.6)
[2022-07-29 09:46] LABS: Anion Gap 16 mmol/L (10-20)
[2022-07-29 14:56] LABS: #Basophils 0.1 thou/uL (0.0-0.2); #Eosinphils 0.3 thou/uL (0.0-0.7); #Lymphocytes 1.7 thou/uL (1.20-3.40); #Monocytes 0.6 thou/uL (0.11-0.59); #Neutrophils 2.5 thou/uL (1.40-6.50); %Basophils 1.5 % (0.0-1.0); %Eosinophils 6.5 % (0.0-10.0); %Lymphocytes 32.8 % (21.0-51.0); %Neutrophils 47.2 % (42.0-75.0); Hemoglobin 13.9 g/dL (12.0-16.0); MDiff Complete? YES; Macrocytosis SLIGHT = 6-15 cells (100X) (0-5/hpf); Mean Corpuscular HGB CONC 32.9 g/dL (32.0-36.0); Mean Corpuscular Hemoglobin 34.2 pg (27.0-31.0); Platelet Clumps SLIGHT; Platelet Morphology Comment PLT clumps seen-ADEQ; RBC Distribution Width 12.1 % (11.5-14.5); Red Blood Cell (RBC) Count 4.07 mill/uL (4.20-5.40); White Blood Cell (WBC) Count 5.2 thou/uL (4.8-10.8)
[2022-07-29 16:01] VITALS: BP 113/53; TEMP 98
== END 2022-07-29 16:35 | disposition home or self-care (01) | DRG 291 ==
LOC: ERS 23:59 → ERHOLD 07-24 05:40 → 2SW 07-24 11:09
PROVIDERS: ADMIT Student in an Organized Health Care Education/Training Program; ATTEND Internal Medicine
DX: I13.0 Hypertensive heart and chronic kidney disease with heart failure and stage 1 through stage 4 chronic kidney disease, or unspecified chronic kidney disease (principal); I50.23 Acute on chronic systolic (congestive) heart failure; J96.21 Acute and chronic respiratory failure with hypoxia; I42.0 Dilated cardiomyopathy; B18.2 Chronic viral hepatitis C; F14.10 Cocaine abuse, uncomplicated; I25.10 Atherosclerotic heart disease of native coronary artery without angina pectoris; F41.9 Anxiety disorder, unspecified; F20.9 Schizophrenia, unspecified; M19.011 Primary osteoarthritis, right shoulder; N18.30 Chronic kidney disease, stage 3 unspecified; I25.2 Old myocardial infarction; Z95.5 Presence of coronary angioplasty implant and graft; Z88.5 Allergy status to narcotic agent; Z88.8 Allergy status to other drugs, medicaments and biological substances; Z79.899 Other long term (current) drug therapy; Z79.82 Long term (current) use of aspirin; Z90.49 Acquired absence of other specified parts of digestive tract
CPT/HCPCS: 36415; 36416; 71045; 80048; 80053; 82550; 82553; 83735; 83880; 84484; 85025; 87449; 87899; 93005; 93798; 96374; 96375; 97139; J0360; J1250; J1650; J1940; J2270; J3475; U0002

== ENCOUNTER 2022-12-04 00:07 | Inpatient (IN) | payer MEDICARE ==
[2022-12-04 01:32] LABS: #Basophils 0.1 thou/uL (0.0-0.2); #Eosinphils 0.1 thou/uL (0.0-0.7); #Lymphocytes 1.7 thou/uL (1.20-3.40); #Monocytes 0.4 thou/uL (0.11-0.59); #Neutrophils 2.9 thou/uL (1.40-6.50); %Basophils 1.8 % (0.0-1.0); %Lymphocytes 32.7 % (21.0-51.0); %Monocytes 8.4 % (0.0-10.0); %Neutrophils 55.2 % (42.0-75.0); Hemoglobin 12.6 g/dL (12.0-16.0); Mean Corpuscular HGB CONC 33.6 g/dL (32.0-36.0); Mean Corpuscular Hemoglobin 35.5 pg (27.0-31.0); Platelet Count 179 10x3/uL (130-400); RBC Distribution Width 13.6 % (11.5-14.5); Red Blood Cell (RBC) Count 3.54 mill/uL (4.20-5.40); White Blood Cell (WBC) Count 5.3 10x3/uL (4.8-10.8)
[2022-12-04 01:51] LABS: ALT (SGPT) 21 U/L (8-55); AST (SGOT) 25 U/L (5-34); Albumin 3.8 g/dL (3.4-4.8); Alkaline Phosphatase 62 U/L (40-110); Anion Gap 17 mmol/L (10-20); BUN (Urea Nitrogen) 25 mg/dL (9.8-20.1); Bilirubin, Total 0.9 mg/dL (0.2-1.2); Calc. Creatinine Clearance 0 mL/min (70-130); Calcium 8.8 mg/dL (7.8-10.44); Carbon Dioxide 20 mmol/L (23-31); Chloride 108 mmol/L (98-107); Estimated GFR 45; Globulin 3.3 g/dL (2.4-3.5); Glucose 100 mg/dL (80-115); Potassium 4.9 mmol/L (3.5-5.1); Protein, Total 7.1 g/dL (5.8-8.1); Sodium 140 mmol/L (136-145)
[2022-12-04] MEDS ORDERED: Furosemide 40 MG/4 ML VIAL ONE ×2 (02:10→09:43)
[2022-12-04 02:12] LABS: CKMB 3.8 ng/mL (0-6.6)
[2022-12-04] MEDS ORDERED: Mag-Al 1200 mg/1200 mg/30 ML UDCUP ONE (03:07)
[2022-12-04] MEDS ORDERED: Lidocaine Viscous Sol 2% 15 ml UD Cup ONE (03:07)
[2022-12-04] MEDS ORDERED: Calcium Carbonate 500 MG ChewTAB PO PRN (03:32)
[2022-12-04] MEDS ORDERED: Acetaminophen 325 MG TAB PO PRN (03:32)
[2022-12-04] MEDS ORDERED: Ondansetron ODT 4 MG TAB PO PRN (03:32)
[2022-12-04] MEDS ORDERED: HYDROcodone/Acetaminophen 5/325 mg Tablet ONE ×3 (04:11→14:23)
[2022-12-04 04:22] LABS: Bacteria/HPF None Seen HPF (None Seen); Bilirubin Negative (Negative); Blood, Urine Negative (Negative); Clarity Clear (Clear); Glucose, Urine (Dipstick) Normal (Negative); Ketone, Urine Negative (Negative); Leukocyte 25 Leu/uL (Negative); Nitrite Negative (Negative); Protein, Urine (Dipstick) 20 mg/dL (Neg-Trace); RBC/HPF 0-3 HPF (0-3); Specific Gravity, Urine 1.009 (1.002-1.036); Squamous Epithelial 0-3 HPF (0-3); Urobilinogen Normal mg/dL (Less than 2); pH, Urine 6.5 (5.0-9.0)
[2022-12-04] MEDS: HYDROcodone/Acetaminophen 5/325 mg Tablet PO PRN ×4 (04:30→19:55)
[2022-12-04 04:45] VITALS: BMI 22.4
[2022-12-04] MEDS: Furosemide 40 MG/4 ML VIAL SLOW IVP SCH ×2 (05:34→09:51)
[2022-12-04 08:37] LABS: Magnesium 1.9 mg/dL (1.6-2.6)
[2022-12-04 08:41] LABS: Troponin I 0.063 ng/mL (< 0.028)
[2022-12-04] MEDS ORDERED: Aspirin Chewable 81 MG TAB ONE (09:09)
[2022-12-04] MEDS ORDERED: Famotidine 20 MG TAB ONE (09:09)
[2022-12-04] MEDS: Carvedilol 6.25 MG TAB PO SCH ×2 (09:39→16:15)
[2022-12-04] MEDS: Aspirin 81 mg Enteric Coated Tablet PO SCH (09:41)
[2022-12-04] MEDS: Amitriptyline HCl 25 MG TAB PO SCH ×2 (09:41→19:56)
[2022-12-04] MEDS: Famotidine 20 MG TAB PO SCH (09:42)
[2022-12-04] MEDS: Sacubitril 49 MG/Valsartan 51 MG TABLET PO SCH ×2 (09:42→19:56)
[2022-12-04] MEDS: Spironolactone 25 MG TAB PO SCH (09:43)
[2022-12-04 12:00] LABS: Troponin I 0.065 ng/mL (< 0.028)
[2022-12-04 18:23] LABS: Amphetamine Not Detected (NotDetected); Barbiturates Screen Not Detected (NotDetected); Benzodiazepine Screen Not Detected (NotDetected); Cocaine Metabolite Screen Detected (NotDetected); Methadone Not Detected (NotDetected); Methamphetamine Not Detected (NotDetected); Opiate Screen Detected (NotDetected); Oxycodone Screen Not Detected (NotDetected); Phencyclidine (PCP) Not Detected (NotDetected); THC/Cannabinoid Screen Not Detected (NotDetected); Tricyclic Screen Detected (NotDetected)
[2022-12-04] MEDS: Atorvastatin Calcium 40 MG TAB PO SCH (19:55)
[2022-12-05] MEDS: HYDROcodone/Acetaminophen 5/325 mg Tablet PO PRN ×5 (01:06→23:51)
[2022-12-05 05:46] LABS: Anion Gap 14 mmol/L (10-20); BUN (Urea Nitrogen) 35 mg/dL (9.8-20.1); Calc. Creatinine Clearance 33 mL/min (70-130); Calcium 8.7 mg/dL (7.8-10.44); Carbon Dioxide 25 mmol/L (23-31); Chloride 102 mmol/L (98-107); Estimated GFR 49; Glucose 121 mg/dL (80-115); Sodium 137 mmol/L (136-145)
[2022-12-05] MEDS: Furosemide 40 MG/4 ML VIAL SLOW IVP SCH ×2 (05:47→17:30)
[2022-12-05 06:05] LABS: #Basophils 0.1 thou/uL (0.0-0.2); #Eosinphils 0.1 thou/uL (0.0-0.7); #Lymphocytes 1.4 thou/uL (1.20-3.40); #Monocytes 0.4 thou/uL (0.11-0.59); %Basophils 1.6 % (0.0-1.0); %Eosinophils 2.6 % (0.0-10.0); %Lymphocytes 35.5 % (21.0-51.0); %Monocytes 9.8 % (0.0-10.0); %Neutrophils 50.5 % (42.0-75.0); Hemoglobin 12.5 g/dL (12.0-16.0); MDiff Complete? YES; Macrocytosis SLIGHT = 6-15 cells (100X) (0-5/hpf); Mean Corpuscular HGB CONC 32.6 g/dL (32.0-36.0); Mean Corpuscular Hemoglobin 34.8 pg (27.0-31.0); Mean Platelet Volume 8.9 fL (7.4-10.4); Platelet Clumps SLIGHT; Platelet Count 175 10x3/uL (130-400); Platelet Morphology Comment Appears Adequate; Polychromasia SLIGHT = 2-3 cells (100X) (0-2/hpf); RBC Distribution Width 13.4 % (11.5-14.5); Red Blood Cell (RBC) Count 3.59 mill/uL (4.20-5.40); White Blood Cell (WBC) Count 3.9 10x3/uL (4.8-10.8)
[2022-12-05] MEDS: Aspirin 81 mg Enteric Coated Tablet PO SCH (09:29)
[2022-12-05] MEDS: Amitriptyline HCl 25 MG TAB PO SCH ×2 (09:29→20:07)
[2022-12-05] MEDS: Famotidine 20 MG TAB PO SCH (09:29)
[2022-12-05] MEDS: Clopidogrel Bisulfate 75 MG TAB PO SCH (09:29)
[2022-12-05] MEDS: Spironolactone 25 MG TAB PO SCH (09:29)
[2022-12-05] MEDS: Sacubitril 49 MG/Valsartan 51 MG TABLET PO SCH ×2 (09:29→20:08)
[2022-12-05] MEDS: Carvedilol 6.25 MG TAB PO SCH ×2 (09:31→17:30)
[2022-12-05] MEDS ORDERED: Electrolyte Replacement Protocol 1 EACH FS SCH (09:45)
[2022-12-05] MEDS ORDERED: Magnesium 2 GM/50 ML(in water) 2 GM in Premix Bag 1 BAG IVPB SCH (10:00)
[2022-12-05] MEDS ORDERED: Magnesium Oxide 400 MG TAB PO SCH (10:15)
[2022-12-05] MEDS ORDERED: Furosemide 80 MG TAB PO SCH (18:15)
[2022-12-05] MEDS: Atorvastatin Calcium 40 MG TAB PO SCH (20:07)
[2022-12-05] MEDS: Magnesium Oxide 400 MG TAB PO SCH (20:08)
[2022-12-06] MEDS: HYDROcodone/Acetaminophen 5/325 mg Tablet PO PRN ×4 (03:48→20:40)
[2022-12-06] MEDS: Furosemide 40 MG/4 ML VIAL SLOW IVP SCH ×2 (05:19→14:46)
[2022-12-06] MEDS: Spironolactone 25 MG TAB PO SCH (09:27)
[2022-12-06] MEDS: Carvedilol 6.25 MG TAB PO SCH ×2 (09:27→17:15)
[2022-12-06] MEDS: Sacubitril 49 MG/Valsartan 51 MG TABLET PO SCH ×2 (09:27→20:09)
[2022-12-06] MEDS: Clopidogrel Bisulfate 75 MG TAB PO SCH (09:27)
[2022-12-06] MEDS: Amitriptyline HCl 25 MG TAB PO SCH (09:27)
[2022-12-06] MEDS: Aspirin 81 mg Enteric Coated Tablet PO SCH (09:27)
[2022-12-06] MEDS: Famotidine 20 MG TAB PO SCH (09:27)
[2022-12-06] MEDS: Magnesium Oxide 400 MG TAB PO SCH ×2 (09:28→20:09)
[2022-12-06 09:46] LABS: Anion Gap 16 mmol/L (10-20); BUN (Urea Nitrogen) 45 mg/dL (9.8-20.1); Calc. Creatinine Clearance 28 mL/min (70-130); Calcium 9.1 mg/dL (7.8-10.44); Carbon Dioxide 31 mmol/L (23-31); Chloride 97 mmol/L (98-107); Estimated GFR 40; Glucose 113 mg/dL (80-115); Potassium 3.9 mmol/L (3.5-5.1); Sodium 140 mmol/L (136-145)
[2022-12-06] MEDS ORDERED: Magnesium 2 GM/50 ML(in water) 2 GM in Premix Bag 1 BAG IVPB SCH (10:00)
[2022-12-06] MEDS: Atorvastatin Calcium 40 MG TAB PO SCH (20:09)
[2022-12-06] MEDS: DOBUTamine 500 mg/250 ml 250 ML IVPB SCH (20:20)
[2022-12-07] MEDS: HYDROcodone/Acetaminophen 5/325 mg Tablet PO PRN ×5 (01:07→20:28)
[2022-12-07] MEDS: Furosemide 40 MG/4 ML VIAL SLOW IVP SCH ×2 (05:07→14:43)
[2022-12-07 05:14] LABS: Mean Corpuscular HGB CONC 32.4 g/dL (32.0-36.0); Mean Corpuscular Hemoglobin 34.3 pg (27.0-31.0); Red Blood Cell (RBC) Count 4.36 mill/uL (4.20-5.40); White Blood Cell (WBC) Count 6.5 10x3/uL (4.8-10.8)
[2022-12-07 05:31] LABS: Anion Gap 17 mmol/L (10-20); BUN (Urea Nitrogen) 44 mg/dL (9.8-20.1); Calc. Creatinine Clearance 29 mL/min (70-130); Carbon Dioxide 25 mmol/L (23-31); Chloride 98 mmol/L (98-107); Potassium 3.8 mmol/L (3.5-5.1); Sodium 136 mmol/L (136-145)
[2022-12-07 05:32] LABS: Estimated GFR 43; Glucose 109 mg/dL (80-115); Magnesium 2.5 mg/dL (1.6-2.6)
[2022-12-07 05:51] LABS: #Basophils 0.1 thou/uL (0.0-0.2); #Eosinphils 0.1 thou/uL (0.0-0.7); #Lymphocytes 1.3 thou/uL (1.20-3.40); #Monocytes 0.6 thou/uL (0.11-0.59); #Neutrophils 4.4 thou/uL (1.40-6.50); %Basophils 1.1 % (0.0-1.0); %Eosinophils 1.7 % (0.0-10.0); %Lymphocytes 19.7 % (21.0-51.0); %Monocytes 9.8 % (0.0-10.0); %Neutrophils 67.7 % (42.0-75.0); MDiff Complete? YES; Mean Platelet Volume 8.3 fL (7.4-10.4); Platelet Clumps SLIGHT; Platelet Count 234 10x3/uL (130-400); Platelet Morphology Comment PLT clumps seen-ADEQ
[2022-12-07] MEDS: Spironolactone 25 MG TAB PO SCH (09:29)
[2022-12-07] MEDS: Carvedilol 6.25 MG TAB PO SCH ×2 (09:29→17:36)
[2022-12-07] MEDS: Aspirin 81 mg Enteric Coated Tablet PO SCH (09:29)
[2022-12-07] MEDS: Sacubitril 49 MG/Valsartan 51 MG TABLET PO SCH ×2 (09:29→20:27)
[2022-12-07] MEDS: Clopidogrel Bisulfate 75 MG TAB PO SCH (09:29)
[2022-12-07] MEDS: Famotidine 20 MG TAB PO SCH (09:29)
[2022-12-07] MEDS: Magnesium Oxide 400 MG TAB PO SCH ×2 (09:30→20:28)
[2022-12-07] MEDS ORDERED: Simethicone Chewable 80 MG TAB PO PRN (20:10)
[2022-12-07] MEDS: Atorvastatin Calcium 40 MG TAB PO SCH (20:27)
[2022-12-07] MEDS: Heparin 5,000 UNITS/ML VIAL SC SCH (20:32)
[2022-12-08] MEDS: HYDROcodone/Acetaminophen 5/325 mg Tablet PO PRN ×5 (00:47→20:54)
[2022-12-08] MEDS ORDERED: hydrOXYzine 25 MG TAB PO SCH (02:15)
[2022-12-08 05:20] LABS: #Basophils 0.1 thou/uL (0.0-0.2); #Eosinphils 0.1 thou/uL (0.0-0.7); #Lymphocytes 1.6 thou/uL (1.20-3.40); #Monocytes 0.7 thou/uL (0.11-0.59); #Neutrophils 4.7 thou/uL (1.40-6.50); %Eosinophils 1.5 % (0.0-10.0); %Lymphocytes 21.9 % (21.0-51.0); %Neutrophils 65.6 % (42.0-75.0); Hemoglobin 15.8 g/dL (12.0-16.0); Mean Corpuscular HGB CONC 32.5 g/dL (32.0-36.0); Mean Corpuscular Hemoglobin 35.3 pg (27.0-31.0); Mean Platelet Volume 9.4 fL (7.4-10.4); Platelet Count 167 10x3/uL (130-400); RBC Distribution Width 13.2 % (11.5-14.5); Red Blood Cell (RBC) Count 4.48 mill/uL (4.20-5.40); White Blood Cell (WBC) Count 7.1 10x3/uL (4.8-10.8)
[2022-12-08] MEDS: Furosemide 40 MG/4 ML VIAL SLOW IVP SCH ×2 (06:03→15:51)
[2022-12-08 08:01] LABS: Anion Gap 19 mmol/L (10-20); BUN (Urea Nitrogen) 52 mg/dL (9.8-20.1); Calc. Creatinine Clearance 25 mL/min (70-130); Calcium 9.1 mg/dL (7.8-10.44); Carbon Dioxide 23 mmol/L (23-31); Chloride 96 mmol/L (98-107); Estimated GFR 37; Glucose 97 mg/dL (80-115); Potassium 5.4 mmol/L (3.5-5.1); Sodium 133 mmol/L (136-145)
[2022-12-08] MEDS: Clopidogrel Bisulfate 75 MG TAB PO SCH (08:06)
[2022-12-08] MEDS: Simethicone Chewable 80 MG TAB PO SCH ×3 (08:06→17:13)
[2022-12-08] MEDS: Famotidine 20 MG TAB PO SCH (08:06)
[2022-12-08] MEDS: Aspirin 81 mg Enteric Coated Tablet PO SCH (08:06)
[2022-12-08] MEDS: Heparin 5,000 UNITS/ML VIAL SC SCH ×2 (08:06→20:54)
[2022-12-08] MEDS: Carvedilol 6.25 MG TAB PO SCH ×2 (08:06→17:13)
[2022-12-08] MEDS: Sacubitril 49 MG/Valsartan 51 MG TABLET PO SCH ×2 (08:07→20:54)
[2022-12-08] MEDS: Magnesium Oxide 400 MG TAB PO SCH ×2 (08:07→20:54)
[2022-12-08] MEDS: Spironolactone 25 MG TAB PO SCH (08:07)
[2022-12-08 13:20] LABS: Anion Gap 17 mmol/L (10-20); BUN (Urea Nitrogen) 53 mg/dL (9.8-20.1); Calc. Creatinine Clearance 28 mL/min (70-130); Calcium 8.9 mg/dL (7.8-10.44); Carbon Dioxide 24 mmol/L (23-31); Chloride 96 mmol/L (98-107); Estimated GFR 40; Glucose 124 mg/dL (80-115); Potassium 4.6 mmol/L (3.5-5.1); Sodium 132 mmol/L (136-145)
[2022-12-08] MEDS ORDERED: Loratadine 10 MG TAB PO PRN (15:57)
[2022-12-08] MEDS: Atorvastatin Calcium 40 MG TAB PO SCH (20:54)
[2022-12-09] MEDS ORDERED: hydrOXYzine 25 MG TAB PO SCH (00:30)
[2022-12-09] MEDS: HYDROcodone/Acetaminophen 5/325 mg Tablet PO PRN ×4 (00:36→17:45)
[2022-12-09] MEDS: Furosemide 40 MG/4 ML VIAL SLOW IVP SCH ×2 (05:08→13:34)
[2022-12-09 05:13] LABS: #Basophils 0.1 thou/uL (0.0-0.2); #Eosinphils 0.2 thou/uL (0.0-0.7); #Lymphocytes 1.7 thou/uL (1.20-3.40); #Monocytes 0.7 thou/uL (0.11-0.59); %Eosinophils 3.1 % (0.0-10.0); %Lymphocytes 30.8 % (21.0-51.0); %Monocytes 12.4 % (0.0-10.0); %Neutrophils 52.8 % (42.0-75.0); Hemoglobin 15.3 g/dL (12.0-16.0); Mean Corpuscular HGB CONC 31.8 g/dL (32.0-36.0); Mean Platelet Volume 8.6 fL (7.4-10.4); Platelet Count 203 10x3/uL (130-400); RBC Distribution Width 13.1 % (11.5-14.5); Red Blood Cell (RBC) Count 4.49 mill/uL (4.20-5.40); White Blood Cell (WBC) Count 5.6 10x3/uL (4.8-10.8)
[2022-12-09 05:15] LABS: Anion Gap 17 mmol/L (10-20); BUN (Urea Nitrogen) 49 mg/dL (9.8-20.1); Calc. Creatinine Clearance 31 mL/min (70-130); Calcium 9.1 mg/dL (7.8-10.44); Carbon Dioxide 23 mmol/L (23-31); Chloride 100 mmol/L (98-107); Estimated GFR 46; Glucose 121 mg/dL (80-115); Potassium 4.9 mmol/L (3.5-5.1); Sodium 135 mmol/L (136-145)
[2022-12-09] MEDS: Aspirin 81 mg Enteric Coated Tablet PO SCH (07:59)
[2022-12-09] MEDS: Spironolactone 25 MG TAB PO SCH (07:59)
[2022-12-09] MEDS: Carvedilol 6.25 MG TAB PO SCH ×2 (07:59→17:43)
[2022-12-09] MEDS: Sacubitril 49 MG/Valsartan 51 MG TABLET PO SCH ×2 (07:59→20:42)
[2022-12-09] MEDS: Clopidogrel Bisulfate 75 MG TAB PO SCH (07:59)
[2022-12-09] MEDS: Magnesium Oxide 400 MG TAB PO SCH ×2 (08:00→20:42)
[2022-12-09] MEDS: Simethicone Chewable 80 MG TAB PO SCH ×3 (08:00→17:43)
[2022-12-09] MEDS: Famotidine 20 MG TAB PO SCH (08:00)
[2022-12-09] MEDS: Heparin 5,000 UNITS/ML VIAL SC SCH ×2 (08:00→20:42)
[2022-12-09] MEDS: DOBUTamine 500 mg/250 ml 250 ML IVPB SCH (13:15)
[2022-12-09] MEDS: Atorvastatin Calcium 40 MG TAB PO SCH (20:42)
[2022-12-10 05:14] LABS: Anion Gap 14 mmol/L (10-20); BUN (Urea Nitrogen) 57 mg/dL (9.8-20.1); Calc. Creatinine Clearance 31 mL/min (70-130); Calcium 9.2 mg/dL (7.8-10.44); Carbon Dioxide 29 mmol/L (23-31); Chloride 98 mmol/L (98-107); Estimated GFR 45; Glucose 130 mg/dL (80-115); Potassium 4.6 mmol/L (3.5-5.1); Sodium 136 mmol/L (136-145)
[2022-12-10] MEDS: Furosemide 40 MG/4 ML VIAL SLOW IVP SCH ×2 (05:16→14:55)
[2022-12-10] MEDS: HYDROcodone/Acetaminophen 5/325 mg Tablet PO PRN ×3 (06:11→16:13)
[2022-12-10] MEDS: Simethicone Chewable 80 MG TAB PO SCH ×3 (07:45→16:13)
[2022-12-10] MEDS: Sacubitril 49 MG/Valsartan 51 MG TABLET PO SCH (07:45)
[2022-12-10] MEDS: Spironolactone 25 MG TAB PO SCH (07:45)
[2022-12-10] MEDS: Heparin 5,000 UNITS/ML VIAL SC SCH (07:45)
[2022-12-10] MEDS: Magnesium Oxide 400 MG TAB PO SCH (07:46)
[2022-12-10] MEDS: Famotidine 20 MG TAB PO SCH (07:46)
[2022-12-10] MEDS: Aspirin 81 mg Enteric Coated Tablet PO SCH (07:46)
[2022-12-10] MEDS: Clopidogrel Bisulfate 75 MG TAB PO SCH (07:46)
[2022-12-10] MEDS: Carvedilol 6.25 MG TAB PO SCH ×2 (07:48→17:02)
[2022-12-10 11:21] VITALS: TEMP 97.6
[2022-12-10 15:43] VITALS: BP 95/52
== END 2022-12-10 19:36 | disposition home or self-care (01) | DRG 280 ==
LOC: ERS 00:07 → ERHOLD 02:59 → 2SW 15:06
PROVIDERS: ADMIT Internal Medicine; ATTEND Internal Medicine
PROC: 3E033XZ Introduction of Vasopressor into Peripheral Vein, Percutaneous Approach (ICD-10-PCS; principal; 2022-12-06)
PROC: 02HV33Z Insertion of Infusion Device into Superior Vena Cava, Percutaneous Approach (ICD-10-PCS; 2022-12-09)
PROC: B5181ZA Fluoroscopy of Superior Vena Cava using Low Osmolar Contrast, Guidance (ICD-10-PCS; 2022-12-09)
PROC: B548ZZA Ultrasonography of Superior Vena Cava, Guidance (ICD-10-PCS; 2022-12-09)
DX: I13.0 Hypertensive heart and chronic kidney disease with heart failure and stage 1 through stage 4 chronic kidney disease, or unspecified chronic kidney disease (principal); I21.A1 Myocardial infarction type 2; I50.23 Acute on chronic systolic (congestive) heart failure; E87.1 Hypo-osmolality and hyponatremia; I25.10 Atherosclerotic heart disease of native coronary artery without angina pectoris; I25.5 Ischemic cardiomyopathy; F41.9 Anxiety disorder, unspecified; F31.9 Bipolar disorder, unspecified; F14.10 Cocaine abuse, uncomplicated; N18.30 Chronic kidney disease, stage 3 unspecified; E83.42 Hypomagnesemia; B18.2 Chronic viral hepatitis C; I08.1 Rheumatic disorders of both mitral and tricuspid valves; Z88.5 Allergy status to narcotic agent; Z88.8 Allergy status to other drugs, medicaments and biological substances; Z79.899 Other long term (current) drug therapy; Z79.82 Long term (current) use of aspirin; Z79.02 Long term (current) use of antithrombotics/antiplatelets; Z86.19 Personal history of other infectious and parasitic diseases; Z95.5 Presence of coronary angioplasty implant and graft; Z90.49 Acquired absence of other specified parts of digestive tract; Z87.891 Personal history of nicotine dependence; Z91.14 Patient's other noncompliance with medication regimen
CPT/HCPCS: 36415; 36569; 71045; 80048; 80053; 80306; 81003; 81015; 82553; 83735; 83880; 84484; 85025; 93005; 93306; 93798; 96372; 96374; C1751; J1250; J1644; J1650; J1940; J3475; Q0162